=== PATIENT | female | born 1960 | race Hispanic/Latino ===

== ENCOUNTER 2017-08-23 07:17 | Outpatient (CLI) | payer BC | END 2017-08-23 07:18 | disposition home or self-care (01) | LOC: BICMAMMO 07:17 | PROVIDERS: ATTEND Obstetrics & Gynecology | DX: Z12.31 Encounter for screening mammogram for malignant neoplasm of breast (principal) | CPT/HCPCS: 77063; 77067; G0202 ==

== ENCOUNTER 2019-10-03 04:21 | Inpatient (IN) | payer BC ==
[2019-10-03] MEDS ORDERED: Morphine 4 MG/ML VIAL ONE ×2 (04:34→05:41)
[2019-10-03] MEDS ORDERED: Ondansetron PF 4 MG/2 ML Vial ONE (04:34)
[2019-10-03 04:59] LABS: Hemoglobin 14.2 g/dL (12.0-16.0); Mean Corpuscular HGB CONC 34.5 g/dL (32.0-36.0); Mean Corpuscular Hemoglobin 32.3 pg (27.0-31.0); Mean Corpuscular Volume 93.7 fL (78.0-98.0); Mean Platelet Volume 8.3 fL (7.4-10.4); Platelet Count 181 thou/uL (130-400); RBC Distribution Width 11.2 % (11.5-14.5); Red Blood Cell (RBC) Count 4.41 mill/uL (4.20-5.40); White Blood Cell (WBC) Count 16.5 thou/uL (4.8-10.8)
[2019-10-03 05:05] LABS: PTT 38.7 SEC (22.9-36.1); Prothrombin Time 13.4 SEC (12.0-14.7)
[2019-10-03 05:16] LABS: Band 24 % (5-11); Lymphocytes 4 % (21-51); MDiff Complete? YES; Monocytes 2 % (0-10); Neutrophil 70 % (42-75); Platelet Morphology Comment Appears Adequate; RBC Morphology Normal
[2019-10-03 05:23] LABS: ALT (SGPT) 18 U/L (8-55); AST (SGOT) 31 U/L (5-34); Albumin 4.1 g/dL (3.5-5.0); Alkaline Phosphatase 115 U/L (40-110); Anion Gap 17 mmol/L (10-20); BUN (Urea Nitrogen) 5 mg/dL (9.8-20.1); Bilirubin, Total 0.7 mg/dL (0.2-1.2); Calc. Creatinine Clearance 0 mL/min (70-130); Calcium 8.7 mg/dL (7.8-10.44); Carbon Dioxide 23 mmol/L (22-29); Chloride 96 mmol/L (98-107); Estimated GFR-MDRD 87; Globulin 4.3 g/dL (2.4-3.5); Glucose 156 mg/dL (70-105); Potassium 3.2 mmol/L (3.5-5.1); Protein, Total 8.4 g/dL (6.0-8.3); Sodium 133 mmol/L (136-145)
[2019-10-03] MEDS ORDERED: metroNIDAZOLE 500 MG/100 ML BAG ONE (05:25)
[2019-10-03] MEDS ORDERED: Piperacillin/Tazobactam 4.5 GM VIAL ONE (05:25)
[2019-10-03] MEDS ORDERED: Sodium Chloride 0.9% 100 ML ONE (05:25)
[2019-10-03 05:44] LABS: Bilirubin Negative (Negative); Blood, Urine Negative (Negative); Clarity Clear (Clear); Glucose, Urine (Dipstick) Normal (Negative); Leukocyte Negative Leu/uL (Negative); Nitrite Negative (Negative); Protein, Urine (Dipstick) Negative (Neg-Trace); Urobilinogen Normal mg/dL (Less than 2)
[2019-10-03] MEDS ORDERED: Fentanyl 100 MCG/2 ML VIAL ONE (06:40)
--- NOTE | 2019-10-03 07:55 | RAD ---
CHEST 1 VIEW: HISTORY: Pain. COMPARISON: 08/03/2007. FINDINGS: Normal cardiac silhouette. The lungs and pleural spaces are clear. No pneumothorax or osseous abnor malities. IMPRESSION: No acute cardiopulmonary process. POS: PPP
[2019-10-03] MEDS ORDERED: Sodium Chloride 0.9% 1,000 ML IV SCH (08:04)
[2019-10-03 08:16] LABS: Lactic Acid 2.4 mmol/L (0.5-2.2)
--- NOTE | 2019-10-03 08:16 | CT ---
ABDOMEN CT WITHOUT CONTRAST PELVIC CT WITHOUT CONTRAST: HISTORY: Right-side abdominal pain beginning at 5 p.m. yesterday. Abdominal distention. The patient had a co lonoscopy yesterday. Previous cholecystectomy. FINDINGS: ABDOMEN CT: Lung bases are clear. Heart size is normal. No significant pericardial effusion. The visualized ao rta has a normal caliber. No periaortic fat stranding. Gallbladder is surgically absent. There is hypoattenuation of the liver suggesting hepatic steatosis. No enhancing masses within the l iver. Spleen, pancreas, and adrenal glands have normal attenuation and enhancement. No gastrohepatic, retrocrural, or periportal lymphadenopathy. There is evidence of mild dilatation of bilateral intrarenal collecting systems, right greater than l eft. Bilateral extrarenal collecting systems are decompressed. Significance of the mild dilatation of the intrarenal collecting systems is uncertain but may, in part, be a normal variant. The finding s are similar on a stone CT performed 07/01/2003. Limited evaluation of the alimentary canal with the absence of oral contrast. Gastric mucosa, duoden um, and multiple normal-caliber small bowel loops are identified. There is inflammatory change at th e ileocecal junction as well as circumferential mucosal edema involving the cecal apex, cecum, and as cending colon. The transverse colon, descending colon, and sigmoid colon have a normal caliber. The re is diverticulosis in the left hemicolon. No evidence of diverticulitis. At the level of the cecu m and ascending colon, there is a small amount of fluid and pericolonic fat stranding. There does ap pear to be an abrupt caliber change at the junction of the ascending colon and proximal transverse co opal. Please refer to recent colonoscopy report for further detail. No evidence of extraluminal air. No evidence of abscess. PELVIC CT: Limited evaluation due to beam-attenuation artifact from bilateral hip prostheses. Urinary bladder a ppears to be unremarkable. No pelvic mass, lymphadenopathy, free air, or free fluid. There appear t o be hysterectomy changes. OSSEOUS STRUCTURES: Grade I anterolisthesis of L5 upon S1 with associated bilateral pars defects. IMPRESSION: 1. Abnormal mucosal edema involving the right hemicolon as described above. There are inflammatory changes and fluid in the adjacent mesentery. Findings may be due to infectious, inflammatory process versus a reactive process due to recent colonoscopy. Please refer to separate colonoscopy report fo r further detail. The possibility of a lesion in the right hemicolon cannot be excluded. GI consult ation if clinically warranted. 2. Stable mild prominence of bilateral intrarenal collecting systems. Given longstanding presence, a congenital variant is favored. There is no evidence of an obstructing calculus. Results of the study were discussed with Dr. Barth 10/03/2019 at 5:19 a.m. CODE JARRET POS: PPP
[2019-10-03] MEDS ORDERED: Sodium Chloride 0.9% 500 ML IV SCH (08:45)
[2019-10-03] MEDS ORDERED: diphenhydrAMINE 25 MG CAP PO PRN (08:55)
[2019-10-03] MEDS ORDERED: Naloxone HCl 0.4 mg/ml Vial IV PRN (08:55)
[2019-10-03] MEDS ORDERED: diphenhydrAMINE 50 MG/ML VIAL IM PRN (08:55)
[2019-10-03] MEDS ORDERED: diphenhydrAMINE 50 MG/ML VIAL IVP PRN (08:55)
[2019-10-03] MEDS ORDERED: Communication Order-Pharmacy FS SCH (09:00)
[2019-10-03] MEDS ORDERED: Famotidine 20 MG TAB PO SCH (09:00)
[2019-10-03 09:25] VITALS: BMI 28.7
--- NOTE | 2019-10-03 09:28 | PDOC.HHP ---
Hospitalist HPI - History of Present Illness Abdominal pain History of Present Illness: The patient is a 58 year old female with past medical history of hypertension and chronic diarrhea after cholecystectomy 6 years ago who presented to the hospital with sever abdominal pain the started yesterday 5 hrs after screening colonoscopy with polypectomies. The pain gradually worsened and became unbearable this morning. In the ER inital assesment revealed signs of sepsis and peritonitis. Hospitalist ROS - Review of Systems Constitutional: reports: chills Respiratory: denies: cough, dry, shortness of breath, hemoptysis, SOB with excertion, pleuritic pain, sputum, wheezing, other Gastrointestinal: reports: nausea, abdominal pain, diarrhea All other systems reviewed; all pertinent +/- noted in HPI/Subj - Medication Medications: Active Medications Diphenhydramine HCl (Benadryl) 25 mg IVP Q3H PRN PRN Reason: Itching Diphenhydramine HCl (Benadryl) 25 mg PO Q3H PRN PRN Reason: Itching Diphenhydramine HCl (Benadryl) 25 mg IM Q3H PRN PRN Reason: Itching Famotidine (Pepcid) 20 mg PO BID [facility] Heparin Sodium (Porcine) (Heparin) 5,000 units SC TID [facility] Hydromorphone HCl (Dilaudid Cadd) 0 mg IVPB INF PRN PRN Reason: Pain Sodium Chloride (Normal Saline 0.9%) 1,000 mls @ 150 mls/hr IV .Q6H40M [facility] Stop: 10/03/19 18:11 Piperacillin Sod/Tazobactam (Sod 3.375 gm/ Sodium Chloride) 100 mls @ 200 mls/ hr IVPB Q6HR [facility] Miscellaneous Information (Communication Order-Pharmacy) 1 each FS ONE [facility] Stop: 10/04/19 23:59 Naloxone HCl (Narcan) 0.2 mg IV Q5MIN PRN PRN Reason: Opiate Reversal Ondansetron HCl (Zofran) 4 mg IVP Q6H PRN PRN Reason: Nausea/Vomiting Stop: 10/03/19 18:11 Sodium Chloride (Flush - Normal Saline) 10 ml IVF PRN PRN PRN Reason: Saline Flush Stop: 10/03/19 18:11 Hospitalist History - Past Medical History Cardiac: reports: no pertinent history Pulmonary: reports: no pertinent history [employer]ELOPER: reports: no pertinent history - Past Surgical History Past Surgical History: reports: Cholecystectomy Hospitalist Results - Labs Result Diagrams: 10/03/19 04:35 10/03/19 04:35 Lab results: WBC 16.5 thou/uL (4.8-10.8) H 10/03/19 04:35 Hgb 14.2 g/dL (12.0-16.0) 10/03/19 04:35 Hct 41.3 % (36.0-47.0) 10/03/19 04:35 MCV 93.7 fL (78.0-98.0) 10/03/19 04:35 Plt Count 181 thou/uL (130-400) 10/03/19 04:35 Band Neuts % (Manual) 24 % (5-11) H 10/03/19 04:35 Sodium 133 mmol/L (136-145) L 10/03/19 04:35 Potassium 3.2 mmol/L (3.5-5.1) L 10/03/19 04:35 Chloride 96 mmol/L (98-107) L 10/03/19 04:35 Carbon Dioxide 23 mmol/L (22-29) 10/03/19 04:35 BUN 5 mg/dL (9.8-20.1) L 10/03/19 04:35 Creatinine 0.70 mg/dL (0.6-1.1) 10/03/19 04:35 Glucose 156 mg/dL (70-105) H 10/03/19 04:35 Lactic Acid 2.4 mmol/L (0.5-2.2) H 10/03/19 07:48 Calcium 8.7 mg/dL (7.8-10.44) 10/03/19 04:35 Total Bilirubin 0.7 mg/dL (0.2-1.2) 10/03/19 04:35 AST 31 U/L (5-34) 10/03/19 04:35 ALT 18 U/L (8-55) 10/03/19 04:35 Alkaline Phosphatase 115 U/L (40-110) H 10/03/19 04:35 Serum Total Protein 8.4 g/dL (6.0-8.3) H 10/03/19 04:35 Albumin 4.1 g/dL (3.5-5.0) 10/03/19 04:35 Urine Ketones Negative mg/dL (Negative) 10/03/19 05:20 Urine Blood Negative (Negative) 10/03/19 05:20 Urine Nitrite Negative (Negative) 10/03/19 05:20 Ur Leukocyte Esterase Negative Giuseppe/uL (Negative) 10/03/19 05:20 Hospitalist H&P A/P - Problem (1) Sepsis Code(s): A41.9 - SEPSIS, UNSPECIFIED ORGANISM Status: Acute Qualifiers: Sepsis acute organ dysfunction status: without acute organ dysfunction Assessment and Plan: Sepsis due to peritonitis likely due to microperforation and translocation of bacteria following colonoscopy with polypectomy. Likely organisms are gram negative bacilli. Start IV Zosyn, IVF, Hydromorphone ROLLER and zofran prn. Check LA, CBC,BMP,Blood culture. (2) Peritonitis Code(s): K65.9 - PERITONITIS, UNSPECIFIED Status: Acute Assessment and Plan: Dr. Cardona consulted. Non acute indication for surgery at this time. (3) Hypertension Code(s): I10 - ESSENTIAL (PRIMARY) HYPERTENSION Status: Acute Qualifiers: Hypertension type: essential hypertension Qualified Code(s): I10 - Essential (primary) hypertension Assessment and Plan: Likely uncontrolled due to pain. Continue to monitor. (4) Status post colonoscopy Code(s): Z98.890 - OTHER SPECIFIED POSTPROCEDURAL STATES Status: Acute Assessment and Plan: As above.
[2019-10-03] MEDS ORDERED: Morphine 4 MG/ML VIAL SLOW IVP PRN (09:47)
[2019-10-03] MEDS ORDERED: Iopamidol-370 76% 500 ML 1 ML ONE (09:58)
[2019-10-03] MEDS: HYDROmorphone 10 mg/100 ml CADD IVPB PRN (10:03)
[2019-10-03] MEDS: Piperacillin/Tazobactam 3.375 GM in Sodium Chloride 0.9% 100 ML IVPB SCH ×3 (11:22→23:19)
[2019-10-03] MEDS: Heparin 5,000 UNITS/ML VIAL SC SCH ×3 (11:22→19:36)
[2019-10-03] MEDS ORDERED: Ondansetron ODT 4 MG TAB SL PRN (11:30)
[2019-10-03] MEDS ORDERED: Ondansetron PF 4 MG/2 ML Vial IVP PRN (11:30)
[2019-10-03 12:42] LABS: Lactic Acid 1.8 mmol/L (0.5-2.2)
[2019-10-03] MEDS ORDERED: Morphine 4 MG/ML VIAL SLOW IVP SCH (14:30)
[2019-10-03] MEDS: Sodium Chloride 0.9% 1,000 ML IV SCH ×2 (14:57→15:00)
[2019-10-03] MEDS ORDERED: Ketorolac Tromethamine 30 MG/ML VIAL ONE (15:28)
[2019-10-03] MEDS ORDERED: Ketorolac Tromethamine 30 MG/ML VIAL IVP SCH (15:30)
--- NOTE | 2019-10-03 15:41 | RAD ---
KUB: 10/03/19 HISTORY: Abdominal pain. Evaluation for free air. There is air within both small and large bowel. This was performed as only a semi-erect film by the avtar lucas. I do not appreciate any free air on this exam. IMPRESSION: Air within both small and large bowel. Small bowel loops are not significantly dilated at this time. I do not appreciate any free air on this semi-erect film. POS: KAYLEE
[2019-10-03] MEDS: ALPRAZolam 0.25 MG TAB PO PRN (17:01)
[2019-10-03] MEDS ORDERED: FLU VACC QS2019-20(6MOS UP)/PF 60 MCG/0.5 ML SYRINGE IM ONE (18:00)
[2019-10-03] MEDS: Ketorolac Tromethamine 30 MG/ML VIAL IVP SCH ×2 (18:09→23:18)
[2019-10-03] MEDS: Diazepam 5 MG TAB PO SCH (20:26)
--- NOTE | 2019-10-03 22:03 | CON ---
DATE OF CONSULTATION: 10/03/2019 REQUESTING PHYSICIAN: Dr. Zack Moreira. HISTORY OF PRESENT ILLNESS: This is a 58-year-old woman, who presented to emergency department yesterday complaining of insidious onset severe right lower quadrant abdominal pain, which started approximately 5 hours after a screening colonoscopy yesterday for chronic diarrhea. The colonoscopy included polypectomy x2. The patient reported pain at 8/10 at onset and intensified to 10/10 at the time of presentation to the Emergency Department. Pain is associated with one bout of nausea, but no emesis. Last bowel movement and flatus was yesterday. At the time of my evaluation, the patient is awake and alert. She denies any relief with intravenous analgesics, which was provided in the emergency department. She denies any fevers or chills. She denies any dyspnea or syncope. PAST MEDICAL HISTORY: Essentially unremarkable except for chronic diarrhea. Other pertinent past medical history includes gastroesophageal reflux disease, anxiety and chronic depression. PAST SURGICAL HISTORY: Pertinent for a laparoscopic cholecystectomy 6 years ago, which preceded the chronic diarrhea. Other surgical history includes hysterectomy and kidney stone extraction. SOCIAL HISTORY: She is , lives at home with her . She denies any cigarette smoking, ethanol, or illicit drug abuse. PRE-HOSPITAL MEDICATIONS: Includes; 1. Alprazolam 0.5 mg p.o. p.r.n. 2. Amlodipine 10 mg p.o. daily. 3. Estradiol 2 mg p.o. daily. 4. Omeprazole 20 mg p.o. daily. 5. Cymbalta 90 mg p.o. daily. ALLERGIES: THE PATIENT DENIES ANY KNOWN DRUG ALLERGIES. REVIEW OF SYSTEMS: Ten-point review of systems essentially unremarkable except as stated in past medical history and chief complaint. PHYSICAL EXAMINATION: GENERAL: This reveals a 58-year-old normally developed woman, who is otherwise coherent and interactive and appears stated age. The patient is alert and oriented x3. She appears to be in moderate acute distress secondary to severe abdominal pain. VITAL SIGNS: This morning includes blood pressure 139/73, pulse is 116, temperature is 98.3 degrees Fahrenheit, oxygen saturation is 92% on room air. HEENT: Pupils equal, round, reactive to light and accommodation. She has no jugular venous distention noted. HEART: Reveals regular rate with sinus tachycardia. No murmurs or gallops auscultated. LUNGS: Clear to auscultation bilaterally. Her breathing is regular and nonlabored. ABDOMEN: Soft, moderately distended and severely tender in the right lower quadrant. Palpation of the right upper, left upper and left lower quadrants, nontender to palpation. She clearly has no rebound tenderness. Bowel sounds are hypoactive in all 4 quadrants. Liver and spleen are nonpalpable below costal margin. NEUROLOGIC: Reveals no focal deficits present. LABORATORY FINDINGS: Today include a CBC with 16,500 white blood cells, hemoglobin and hematocrit 14.2 and 41.3 respectively. Platelet count is 181,000. Differential counts as follows; 70% segmented neutrophils, 24 bands, 4 lymphocytes, and 2 monocytes. Metabolic profile; sodium 133, potassium 3.2, chloride is 96, BUN is 5, creatinine 0.70, glucose 156. Lactic acid which was 3.3 this morning is now down to 1.8 six to eight hours later. Initial total bilirubin 0.7, AST and ALT 31 and 18 respectively. I have personally reviewed the CT scan of the abdomen and pelvis, which was obtained this morning with IV and no oral contrast and this shows right colonic mucosal edema with mesenteric inflammatory fat stranding. There is no pneumoperitoneum or free fluid noted. Six hours from my previous evaluation of this patient due to persistent severe abdominal pain, two-view abdominal x-ray were obtained. This reveals nonspecific gas pattern within the small and large bowel. Again, no pneumoperitoneum is demonstrated. IMPRESSION: 1. Acute severe abdominal pain with localized right-sided peritonitis, status post screening colonoscopy. 2. I suspect a contained microperforation with no physiologic evidence of intraabdominal sepsis. RECOMMENDATIONS: 1. Bowel rest and IV hydration. 2. Broad-spectrum antibiotic therapy. 3. Adequate pain management. 4. We will increase activity to facilitate return of bowel function. The above findings and plan have been discussed with the patient and her family at bedside. I advised the patient that we will continue with serial physical examination and consider surgical intervention if any onset of physiologic derangements including fever, generalized peritonitis, abnormal kidney function or any radiographic evidence of pneumoperitoneum. The patient and her family have indicated understanding of information given. I have answered their questions. Thank you again, Dr. Moreira for allowing me the opportunity to participate in the care of this patient. Job ID: [id number]
[2019-10-04] MEDS: Ketorolac Tromethamine 30 MG/ML VIAL IVP SCH (05:15)
[2019-10-04] MEDS: Piperacillin/Tazobactam 3.375 GM in Sodium Chloride 0.9% 100 ML IVPB SCH ×3 (05:16→17:22)
[2019-10-04 06:28] LABS: #Eosinphils 0.1 thou/uL (0.0-0.7); #Lymphocytes 1.3 thou/uL (1.20-3.40); #Monocytes 0.6 thou/uL (0.11-0.59); #Neutrophils 11.4 thou/uL (1.40-6.50); %Eosinophils 0.9 % (0.0-10.0); %Lymphocytes 9.9 % (21.0-51.0); %Monocytes 4.2 % (0.0-10.0); Anion Gap 12 mmol/L (10-20); BUN (Urea Nitrogen) Less than 4 mg/dL (9.8-20.1); Calc. Creatinine Clearance 108 mL/min (70-130); Calcium 7.5 mg/dL (7.8-10.44); Carbon Dioxide 26 mmol/L (22-29); Chloride 105 mmol/L (98-107); Estimated GFR-MDRD Greater than 90; Glucose 90 mg/dL (70-105); Hemoglobin 11.4 g/dL (12.0-16.0); Mean Corpuscular HGB CONC 33.7 g/dL (32.0-36.0); Mean Corpuscular Hemoglobin 32.6 pg (27.0-31.0); Mean Corpuscular Volume 96.7 fL (78.0-98.0); Mean Platelet Volume 8.1 fL (7.4-10.4); Platelet Count 118 thou/uL (130-400); Platelet Morphology Comment Appears Decreased; RBC Distribution Width 11.3 % (11.5-14.5); RBC Morphology Normal; Red Blood Cell (RBC) Count 3.49 mill/uL (4.20-5.40); Sodium 141 mmol/L (136-145); White Blood Cell (WBC) Count 13.4 thou/uL (4.8-10.8)
[2019-10-04 06:30] LABS: Potassium 2.4 mmol/L (3.5-5.1)
[2019-10-04] MEDS ORDERED: Potassium Chloride 20 MEQ in Premix Bag 1 BAG IVPB SCH (08:00)
[2019-10-04] MEDS: DULoxetine 30 MG CAP PO SCH (08:09)
[2019-10-04] MEDS: Diazepam 5 MG TAB PO SCH ×2 (08:09→20:33)
[2019-10-04] MEDS: Heparin 5,000 UNITS/ML VIAL SC SCH ×3 (08:10→20:33)
[2019-10-04] MEDS ORDERED: Potassium Chloride 20 MEQ TAB PO SCH (08:15)
[2019-10-04] MEDS ORDERED: traMADol HCl 50 MG TAB PO PRN ×3 (09:01→12:01)
[2019-10-04] MEDS ORDERED: Ibuprofen 200 MG TAB PO PRN (09:02)
--- NOTE | 2019-10-04 09:28 | PDOC.HOSPP ---
- Subjective Encounter Date: 10/04/19 Encounter Time: 09:26 Subjective: See details below - Objective Vital Signs & Weight: Vital Signs (12 hours) Temp Pulse Resp BP Pulse Ox 10/04/19 07:58 97.7 F 88 12 117/74 91 L 10/04/19 07:00 104 H 20 92 L 10/04/19 04:41 97.8 F 91 18 119/78 96 10/04/19 00:18 93 93 L 10/04/19 00:15 108 H Weight Weight 132 lb 9.6 oz I&O: 10/03/19 10/04/19 10/05/19 06:59 06:59 06:59 Intake Total 3050 Output Total 5250 Balance -2200 Result Diagrams: 10/04/19 05:56 10/04/19 05:56 Hospitalist ROS - Medication Medications: Active Medications Generic Name Dose Route Start Last Admin Trade Name Freq PRN Reason Stop Dose Admin Albuterol/Ipratropium 3 ml 10/03/19 18:30 10/04/19 07:00 Duoneb NEB 3 ml TID-RT KENIA Administration Alprazolam 0.25 mg 10/03/19 14:20 10/03/19 17:01 Xanax PO 0.25 mg BIDPRN PRN Administration Anxiety Diazepam 5 mg 10/03/19 21:00 10/04/19 08:09 Valium PO 5 mg BID KENIA Administration Diphenhydramine HCl 25 mg 10/03/19 08:55 10/03/19 19:33 Benadryl IVP 25 mg Q3H PRN Administration Itching Duloxetine HCl 90 mg 10/04/19 09:00 10/04/19 08:09 Cymbalta PO 90 mg DAILY KENIA Administration Heparin Sodium (Porcine) 5,000 units 10/03/19 09:00 10/04/19 08:10 Heparin SC 5,000 units TID KENIA Administration Hydromorphone HCl 0 mg 10/03/19 08:55 10/03/19 10:03 Dilaudid Cadd IVPB 10 mg INF PRN Administration Pain Piperacillin Sod/Tazobactam 100 mls @ 200 mls/hr 10/03/19 12:00 10/04/19 05: 16 Sod 3.375 gm/ Sodium Chloride IVPB 100 mls Q6HR KENIA Administration Pantoprazole Sodium 40 mg 10/04/19 09:00 10/04/19 08:10 Protonix PO 40 mg DAILY KENIA Administration - Exam General Appearance: awake alert Eye: PERRL, anicteric sclera Neck: supple, symmetric, no JVD, no thyromegaly, no lymphadenopathy, no carotid bruit Heart: RRR, no murmur, no gallops, no rubs, normal peripheral pulses Respiratory: CTAB, no wheezes, no rales, no ronchi, normal chest expansion, no tachypnea, normal percussion Gastrointestinal: soft, no palpable masses, no rigidity, tender to palpation, diminished bowl sounds Neurological: cranial nerve grossly intact, normal sensation to touch, no weakness, no focal deficits, no new deficit Hosp A/P (1) Sepsis Code(s): A41.9 - SEPSIS, UNSPECIFIED ORGANISM Status: Acute Qualifiers: Sepsis acute organ dysfunction status: without acute organ dysfunction (2) Peritonitis Code(s): K65.9 - PERITONITIS, UNSPECIFIED Status: Acute (3) Hypertension Code(s): I10 - ESSENTIAL (PRIMARY) HYPERTENSION Status: Acute Qualifiers: Hypertension type: essential hypertension Qualified Code(s): I10 - Essential (primary) hypertension (4) Status post colonoscopy Code(s): Z98.890 - OTHER SPECIFIED POSTPROCEDURAL STATES Status: Acute - Plan 09/02: Sepsis due to peritonitis likely due to microperforation and translocation of bacteria following colonoscopy with polypectomy. Likely organisms are gram negative bacilli. Start IV Zosyn, IVF, Hydromorphone [employer] and zofran prn. Check LA, CBC,BMP,Blood culture. 09/03: The patient was seen and examined this morning. She reports that her pain is now at a level of 7 compared to 10 yesterday. No bowel movements were is reported, however she passed gas yesterday and today. She is denying any nausea or vomiting. Over a liter of urine is present in the [place] catheter bag. She was able to ambulate with difficulty due to pain. On examination, her bowel sounds are less than yesterday. Hypokalemia was noted the laboratory studies. Blood culture positive for E. coli. Leukocytosis improving. Continue IV Zosyn and follow final cultures and identification data. Encourage ambulation. No indication for surgery at this time per surgical team. Ileus is present likely exacerbated by opioids and hypokalemia. We will replace her potassium orally as the patient was unable to tolerate IV replacement. Oral tramadol has been started to help wean off Dilaudid [employer].
[2019-10-04] MEDS: Acetaminophen 500 MG TAB PO SCH ×3 (10:25→20:33)
[2019-10-04] MEDS: Potassium Chloride 20 MEQ TAB PO SCH ×3 (10:26→13:22)
--- NOTE | 2019-10-04 12:34 | PRG ---
DATE OF SERVICE: 10/04/2019 SUBJECTIVE: Ms. Mills is a 58-year-old woman who is postoperative day #2, status post screening colonoscopy with polypectomy. The patient was admitted yesterday with abdominal pain, which is intensified to 10/10. She was suspected with acute peritonitis secondary to likely microperforation with bacterial translocation. This morning, she is awake and alert. She has been on a broad-spectrum antibiotic therapy, but reporting passing some flatus, but no bowel movements. She reports decrease in abdominal pain. She denies any fevers or chills. Blood cultures are now positive for E coli bacteremia. Sensitivity studies are pending. OBJECTIVE: VITAL SIGNS: This morning include blood pressure 117/74, pulse is 88, respiratory rate is 12, temperature is 97.7 degrees Fahrenheit, oxygen saturation is 91% on 2 L by nasal cannula oxygen. Maximum temperature in the last 24 hours is 98.3 degrees Fahrenheit. ABDOMEN: Soft with moderate tenderness to palpation and no significant rebound tenderness present. Bowel sounds are present in all 4 quadrants. Abdomen is not as distended as it was yesterday. NEUROLOGIC: No focal deficits present. LABORATORY FINDINGS: Today include a CBC with 13,400 white blood cells in contrast to 16,500 yesterday. hemoglobin and hematocrit are 11.4 and 33.7 respectively, and platelet count is 118,000. Metabolic profile: Sodium 141, potassium is 2.4, chloride is 105, bicarb is 26, BUN is 4, creatinine is 0.55, and glucose is 90. IMPRESSIONS: 1. Postoperative day #2, status post screening colonoscopy with polypectomy x2. 2. Resolving acute peritonitis. 3. Escherichia coli bacteremia secondary to #2. 4. Acute hypokalemia. PLAN: 1. Correct abnormal electrolytes. 2. Continue broad-spectrum antibiotic therapy. 3. There is no further surgical indication for this patient at this time. We will continue with serial physical examination. Anticipate successful nonoperative management of this presumed microperforation. 4. Above findings and plan has been discussed with the patient and her family at bedside. 5. We will resume a clear liquid diet and increase activity. Job ID: [id number]
[2019-10-04] MEDS: traMADol HCl 50 MG TAB PO SCH ×2 (13:19→18:01)
[2019-10-04 13:23] LABS: Hemoglobin 11.4 g/dL (12.0-16.0); Mean Corpuscular HGB CONC 34.2 g/dL (32.0-36.0); Mean Corpuscular Volume 96.2 fL (78.0-98.0); Mean Platelet Volume 8.2 fL (7.4-10.4); Platelet Count 117 thou/uL (130-400); RBC Distribution Width 11.2 % (11.5-14.5); Red Blood Cell (RBC) Count 3.46 mill/uL (4.20-5.40); White Blood Cell (WBC) Count 12.5 thou/uL (4.8-10.8)
[2019-10-04 13:28] LABS: Magnesium 1.4 mg/dL (1.6-2.6)
[2019-10-04 13:31] LABS: Phosphorus 1.7 mg/dL (2.3-4.7)
[2019-10-04 13:44] LABS: Band 26 % (5-11); Eosinophils 3 % (0-10); Hypochromia SLIGHT = 6-15 cells (100X) (0-5/hpf); Lymphocytes 5 % (21-51); MDiff Complete? YES; Monocytes 7 % (0-10); Neutrophil 59 % (42-75); Platelet Morphology Comment Appears Decreased; Polychromasia SLIGHT = 2-3 cells (100X) (0-2/hpf)
[2019-10-04 15:30] LABS: Anion Gap 14 mmol/L (10-20); BUN (Urea Nitrogen) 4 mg/dL (9.8-20.1); Calc. Creatinine Clearance 89 mL/min (70-130); Calcium 7.7 mg/dL (7.8-10.44); Carbon Dioxide 24 mmol/L (22-29); Chloride 101 mmol/L (98-107); Estimated GFR-MDRD Greater than 90; Glucose 162 mg/dL (70-105); Potassium 3.1 mmol/L (3.5-5.1); Sodium 136 mmol/L (136-145)
[2019-10-04] MEDS ORDERED: Potassium Phosphate 30 MMOL, Magnesium Sulfate 3 GM in Sodium Chloride 0.9% 250 ML 250 ML IVPB SCH (16:45)
[2019-10-04] MEDS ORDERED: Magnesium Sulfate 3 GM in Sodium Chloride 0.9% 100 ML IVPB SCH (16:45)
[2019-10-05] MEDS ORDERED: Piperacillin/Tazobactam 3.375 GM VIAL ONE (00:28)
[2019-10-05] MEDS: traMADol HCl 50 MG TAB PO SCH ×4 (00:56→17:18)
[2019-10-05] MEDS: Piperacillin/Tazobactam 3.375 GM in Sodium Chloride 0.9% 100 ML IVPB SCH ×4 (01:00→17:19)
[2019-10-05] MEDS: Acetaminophen 500 MG TAB PO SCH ×4 (03:06→20:28)
[2019-10-05] MEDS: HYDROmorphone 10 mg/100 ml CADD IVPB PRN (07:26)
[2019-10-05 08:56] LABS: Anion Gap 15 mmol/L (10-20); BUN (Urea Nitrogen) Less than 4 mg/dL (9.8-20.1); Calc. Creatinine Clearance 113 mL/min (70-130); Calcium 7.5 mg/dL (7.8-10.44); Carbon Dioxide 21 mmol/L (22-29); Chloride 102 mmol/L (98-107); Estimated GFR-MDRD Greater than 90; Glucose 114 mg/dL (70-105); Magnesium 2.1 mg/dL (1.6-2.6); Potassium 3.2 mmol/L (3.5-5.1); Sodium 135 mmol/L (136-145)
[2019-10-05] MEDS ORDERED: Potassium Chloride 20 MEQ TAB PO SCH (09:15)
[2019-10-05 09:18] LABS: Phosphorus 1.9 mg/dL (2.3-4.7)
[2019-10-05 09:34] LABS: Band 6 % (5-11); Eosinophils 1 % (0-10); Hemoglobin 11.9 g/dL (12.0-16.0); Lymphocytes 11 % (21-51); MDiff Complete? YES; Mean Corpuscular HGB CONC 31.7 g/dL (32.0-36.0); Mean Corpuscular Hemoglobin 30.7 pg (27.0-31.0); Mean Corpuscular Volume 96.7 fL (78.0-98.0); Mean Platelet Volume 8.3 fL (7.4-10.4); Monocytes 4 % (0-10); Neutrophil 78 % (42-75); Platelet Count 147 thou/uL (130-400); RBC Distribution Width 11.3 % (11.5-14.5); RBC Morphology Normal; Red Blood Cell (RBC) Count 3.87 mill/uL (4.20-5.40); White Blood Cell (WBC) Count 12.5 thou/uL (4.8-10.8)
[2019-10-05] MEDS: DULoxetine 30 MG CAP PO SCH (09:48)
[2019-10-05] MEDS: Diazepam 5 MG TAB PO SCH ×2 (09:52→20:32)
[2019-10-05] MEDS: Heparin 5,000 UNITS/ML VIAL SC SCH ×3 (09:53→20:28)
[2019-10-05] MEDS: ALPRAZolam 0.25 MG TAB PO PRN (12:34)
--- NOTE | 2019-10-05 13:28 | CON ---
DATE OF CONSULTATION: 10/05/2019 REQUESTING PHYSICIAN: Preston Carpio MD REASON FOR CONSULTATION: Abdominal pain and bacteremia following colonoscopy. HISTORY OF PRESENT ILLNESS: Lillian Mills is a 58-year-old woman, whom I met just 3 days ago for outpatient routine screening colonoscopy. She had complained of some chronic diarrhea symptoms for several years ever since a prior cholecystectomy, but otherwise had no abdominal complaints at the time of the exam. The colonoscopy went well. The mucosa appeared normal throughout the colon. She had 4 small polyps, all 4 mm or less in size, 3 of them were in the ascending colon and 1 was in the transverse colon. I completely removed all 4 polyps with cold snare polypectomy. No cautery was used. She had some sigmoid diverticulosis, but no evidence of diverticulitis. The examination was otherwise without abnormality. I did not visualize the terminal ileum, but the ileocecal valve appeared normal. Following the procedure, the patient was doing well. I sent her a prescription for colestipol to try for the chronic diarrhea. The patient reports that 4 to 5 hours after the procedure she started having progressively worsening abdominal pain in the right side of the abdomen. Overnight that night, it became severe and she presented to the emergency department. She was found to have leukocytosis with WBC initially of 16.5 as well as lactic acid elevation to 3.3. She was tachycardic, though afebrile. A CT scan of the abdomen and pelvis was performed without contrast. She had no free intraperitoneal air, but there is mucosal edema involving most of the right hemicolon including the cecal apex, cecum, ascending colon, and ileocecal junction. The remainder of the colon was normal in caliber. She was evaluated by Dr. Cardona. His impression was that the patient probably experienced bacterial translocation secondary to a microperforation with subsequent peritonitis. One blood culture did come back growing E coli. The patient has been treated with broad-spectrum antibiotics over the weekend. My service was not notified until this morning. The patient has been afebrile and hemodynamically stable, but her abdominal pain persists. She has been on a Dilaudid CASH MANAGEMENT CLERK. There has been no vomiting. She has passed a bit of flatus. No bowel movements. She is quite frustrated. REVIEW OF SYSTEMS: Full review of systems including constitutional, head, eyes, ears, nose, throat, GI, , cardiovascular, respiratory, musculoskeletal, neurologic systems is negative except as noted in the HPI. PAST MEDICAL HISTORY: 1. Cholecystectomy 6 years ago. 2. Chronic diarrhea, since cholecystectomy. 3. Anxiety. 4. Depression. 5. GERD. 6. Colon polyps, status post cold snare polypectomy x4 on 10/02/2019. 7. Hysterectomy. 8. Kidney stone extraction. SOCIAL HISTORY: The patient is , lives at home with her . No smoking, alcohol, or drug use. FAMILY HISTORY: Noncontributory. ALLERGIES: NO KNOWN DRUG ALLERGIES. OUTPATIENT MEDICATIONS: 1. Alprazolam 0.5 mg p.o. p.r.n. 2. Amlodipine 10 mg daily. 3. Estradiol 2 mg daily. 4. Omeprazole 20 mg daily. 5. Cymbalta 90 mg daily. INPATIENT MEDICATIONS: 1. Tylenol p.r.n. 2. DuoNebs t.i.d. 3. Xanax 0.5 mg b.i.d. p.r.n. 4. Valium 5 mg p.o. b.i.d. 5. Cymbalta 90 mg daily. 6. Pantoprazole 40 mg daily. 7. Zosyn 3.375 mg every 6 hours. 8. Tramadol 50 mg q.6 h. 9. Dilaudid CASH MANAGEMENT CLERK. PHYSICAL EXAMINATION: VITAL SIGNS: Temperature 97.5, pulse 93, blood pressure 127/87, and 99% oxygen saturation on room air. GENERAL: A 58-year-old woman, lying in bed, in [id number] distress from abdominal pain, currently receiving breathing treatment, but appears to be breathing comfortably. SKIN: No jaundice and no rashes were palpable. EYES: No scleral icterus. Extraocular movements intact. ENT: Mucous membranes moist. No oral lesions. LYMPHATICS: No submandibular or supraclavicular lymphadenopathy. THYROID: Nontender to palpation. HEART: Regular rate and rhythm. LUNGS: Clear to auscultation bilaterally. ABDOMEN: Nondistended. Bowel sounds are hypoactive. The abdomen is soft. Generalized tenderness to palpation. No guarding or rebound tenderness. EXTREMITIES: No peripheral edema. VESSELS: Radial pulses 2+ bilaterally. NEUROLOGIC: Cranial nerves 2 through 12 intact bilaterally. No focal deficits. LABORATORY STUDIES: WBC initially 16.5 and now down to 12.5, hemoglobin 11.9, and platelets 147. INR 1.0. Sodium 135, potassium 3.2, BUN less than 4, creatinine 0.53, and calcium 7.5. Phosphorus 1.9. Magnesium 2.1. Urinalysis is negative. Blood cultures from admission, one blood culture shows no growth at 48 hours, the other blood culture is growing out E coli. This is resistant to ciprofloxacin and levofloxacin, otherwise pansensitive including sensitive to Zosyn. IMAGING STUDIES: CT of the abdomen and pelvis as detailed in the HPI. ASSESSMENT AND PLAN: 1. Acute peritonitis, following colonoscopy with multiple cold snare polypectomy. 2. Escherichia coli bacteremia, now on IV Zosyn. 3. Right-sided abdominal pain, persistent, secondary to peritonitis. I had a long conversation with the patient this afternoon. She is understandably quite frustrated at what does appear to be a procedural complication. There is no evidence of macroperforation, but I agree with Dr. Cardona's assessment that the patient likely had bacterial translocation as a result of colonoscopy. This is quite unusual, particularly as her polyps were all small, and I did not have to use hot snare cautery. Another possibility would be colonic ischemia, I suppose , but that would be unusual to have such a temporal relationship to the colonoscopy. Dr. Carpio is now following from a surgical standpoint, and I agree with nonoperative management. She is on appropriate antibiotics, receiving appropriate pain control. I expect that symptoms are going to resolve completely, but obviously follow closely. If the patient were to spike fevers or have worsening abdominal pain, I have a low threshold for repeat imaging, and if so, I would get CT angiography to evaluate the mestenteric vasculature. I greatly appreciate the assistance of the Surgical Service. GI will follow along. Please call anytime with questions or concerns. Job ID: [id number] MTDD
--- NOTE | 2019-10-05 14:11 | PDOC.GSPN ---
Surgery Progress Note: Subj - Subjective Patient reports: had a bowel movement, feels better, pain is less Narrative: Mrs. Mills is a 58 year old female presenting with abdominal pain post- colonoscopy and polypectomy. About 5 hours post-colon she had right-sided "spasms" that progressed to excruciating pain 12 hours later. She did not have this before the procedure. Her GI doctor is Dr. Sedrick Britton. Surgery Progress Note: Obj - Vital signs Vital signs: Vital Signs - Most Recent Temp Pulse Resp BP Pulse Ox 97.8 F 99 18 121/83 95 10/05/19 12:53 10/05/19 12:53 10/05/19 12:53 10/05/19 12:53 10/05/19 12:53 - Physical Exam General: no distress Cardiovascular: regular rate and rhythm Respiratory: clear to auscultation Abdomen: soft, positive bowel sounds, tender (Right-sided) Surgery Progress Note: Results - Labs Result Diagrams: 10/08/19 05:06 10/08/19 05:06 Lab results: Laboratory Results - last 24 hr 10/05/19 10/05/19 08:24 08:24 WBC 12.5 H RBC 3.87 L Hgb 11.9 L Hct 37.4 MCV 96.7 MCH 30.7 MCHC 31.7 L RDW 11.3 L Plt Count 147 MPV 8.3 Neutrophils % (Manual) 78 H Band Neuts % (Manual) 6 Lymphocytes % (Manual) 11 L Monocytes % (Manual) 4 Eosinophils % (Manual) 1 RBC Morph Comment Normal Sodium 135 L Potassium 3.2 L Chloride 102 Carbon Dioxide 21 L Anion Gap 15 BUN Less than 4 L Creatinine 0.53 L Estimated GFR (MDRD) Greater than 90 Glucose 114 H Calcium 7.5 L Phosphorus 1.9 L Magnesium 2.1 Surgery Progress Note: A/P - Problem (1) Abdominal pain Code(s): R10.9 - UNSPECIFIED ABDOMINAL PAIN Status: Acute - Plan Plan: Continue observation and clear liquid diet. Will be seen by Dr. Britton. Addendum - Physician - Physician Attestation Date/Time: 10/11/19 0901 I personally performed or re-performed the physical examination and medical decision making. I have verified all student documentation or findings, including history, physical exam and/or medical decision making. Unsure of etiology of the colitis. She has pain but will follow closely for now. To OR if she develops peritonitis or worsening clinically.
--- NOTE | 2019-10-05 15:15 | PDOC.GSPN ---
Surgery Progress Note: Obj - Vital signs Vital signs: Vital Signs - Most Recent Temp Pulse Resp BP Pulse Ox 97.8 F 99 18 121/83 95 10/05/19 12:53 10/05/19 12:53 10/05/19 12:53 10/05/19 12:53 10/05/19 12:53 Surgery Progress Note: Results - Labs Result Diagrams: 10/05/19 08:24 10/05/19 08:24 Lab results: Laboratory Results - last 24 hr 10/05/19 10/05/19 08:24 08:24 WBC 12.5 H RBC 3.87 L Hgb 11.9 L Hct 37.4 MCV 96.7 MCH 30.7 MCHC 31.7 L RDW 11.3 L Plt Count 147 MPV 8.3 Neutrophils % (Manual) 78 H Band Neuts % (Manual) 6 Lymphocytes % (Manual) 11 L Monocytes % (Manual) 4 Eosinophils % (Manual) 1 RBC Morph Comment Normal Sodium 135 L Potassium 3.2 L Chloride 102 Carbon Dioxide 21 L Anion Gap 15 BUN Less than 4 L Creatinine 0.53 L Estimated GFR (MDRD) Greater than 90 Glucose 114 H Calcium 7.5 L Phosphorus 1.9 L Magnesium 2.1 Addendum - Physician - Physician Attestation Date/Time: 10/05/19 9855 I personally performed or re-performed the physical examination and medical decision making. I have verified all student documentation or findings, including history, physical exam and/or medical decision making. Patient would prefer to have Dr. Cardona resume as her surgeon tomorrow.
--- NOTE | 2019-10-05 15:39 | PRG ---
DATE OF SERVICE: 10/05/2019 SUBJECTIVE: Ms. Lundberg is angry on my visit with her today. She states that her pain in the right abdomen is 7/10 and sharp. She notes diarrhea as well. The patient is angry with me due to the fact that she states that she has had severe diarrhea ever since I removed her gallbladder previously. Looking back in my records reveals her cholecystectomy to have been performed in March of 2014. She had seen me back postop and had uncontrolled diarrhea at that time. She was started on Questran and was supposed to follow up with me, but was lost to follow up. She was recently seen by Dr. Britton for this diarrhea and he performed a colonoscopy and cold snare biopsy of a few polyps in her ascending colon. She presents after readmission over the weekend with severe right-sided pain. Her CT scan shows thickened wall consistent with inflammation of the ascending colon. She denies nausea or vomiting. She is tolerating the clear liquid diet. OBJECTIVE: VITAL SIGNS: Her pulse is 99, respirations 18, blood pressure 121/83, and she is afebrile. GENERAL: She is angry, but in no other acute distress. CHEST: Clear. HEART: Regular rate. ABDOMEN: Soft, tender in the right abdomen. She does not have rebound tenderness. LABORATORY DATA: White blood cell count is 12, hemoglobin 11.9, platelet count is 147, she has 78 neutrophils only and 6 bands. Creatinine 0.53, sodium 135, and potassium 3.2. Urine was clear on readmission. IMAGING DATA: CT scan back on 10/03/2019 revealed abnormal mucosal edema of the right hemicolon with inflammatory changes and fluid adjacent mesentery. Differential included inflammatory, infectious, reactive process. ASSESSMENT: 1. Chronic diarrhea after laparoscopic cholecystectomy, but lost to follow up, now just recently established relationship with GI. 2. Right-sided severe abdominal pain after screening colonoscopy with CT showing inflammatory change of the right colon without perforation, hemodynamically stable. PLAN: I am not sure what the etiology is of this acute inflammatory change. She only had cold snare biopsy. There was no evidence of significant perforation on the first CT scan. We discussed possible operative intervention, which she does not want to discuss as an option. I explained to her that my hope is that with supportive care, she will get better, but she specifically turns down in the operative intervention. I offered a second opinion and given her underlying anger with myself and she said she is going to think about it. I offered that her first desktop support consultant surgeon this weekend, Dr. Cardona, could resume her care tomorrow and she is amenable to that and she would prefer that. So, my plan would be continued supportive care, allow clear liquids. Continue Zosyn. Dr. Cardona to resume her care tomorrow. Job ID: [id number]
[2019-10-05] MEDS: HYDROcodone/Acetaminophen 5/325 mg Tablet PO PRN (15:44)
--- NOTE | 2019-10-05 15:59 | PDOC.HOSPP ---
- Subjective Encounter Date: 10/05/19 Subjective: The patient was seen and examined. Her pain is better today. She feels hungry and asks for a more solid food. She is having bowel movements and passing gas. - Objective Vital Signs & Weight: Vital Signs (12 hours) Temp Pulse Resp BP Pulse Ox 10/05/19 12:53 97.8 F 99 18 121/83 95 10/05/19 12:34 93 16 99 10/05/19 09:00 96 10/05/19 08:29 97.5 F L 96 16 127/87 96 10/05/19 06:50 94 16 94 L 10/05/19 04:00 98.2 F 98 20 124/80 94 L Weight Weight 132 lb 9.6 oz I&O: 10/04/19 10/05/19 10/06/19 06:59 06:59 06:59 Intake Total 3050 1460 Output Total 5250 Balance -2200 1460 Result Diagrams: 10/05/19 08:24 10/05/19 08:24 Hospitalist ROS - Medication Medications: Active Medications Generic Name Dose Route Start Last Admin Trade Name Freq PRN Reason Stop Dose Admin Acetaminophen 1,000 mg 10/04/19 09:00 10/05/19 15:47 Tylenol PO Not Given 0300,0900,1500,2100 KENIA Hydrocodone Bitart/Acetaminophen 1 tab 10/05/19 11:42 10/05/19 15:44 [place] 5/325 PO 1 tab Q4H PRN Administration Moderate Pain (4-6) Albuterol/Ipratropium 3 ml 10/03/19 18:30 10/05/19 12:34 Duoneb NEB 3 ml TID-RT KENIA Administration Alprazolam 0.25 mg 10/03/19 14:20 10/05/19 12:34 Xanax PO 0.25 mg BIDPRN PRN Administration Anxiety Diazepam 5 mg 10/03/19 21:00 10/05/19 09:52 Valium PO 5 mg BID KENIA Administration Duloxetine HCl 90 mg 10/04/19 09:00 10/05/19 09:48 Cymbalta PO 90 mg DAILY KENIA Administration Heparin Sodium (Porcine) 5,000 units 10/03/19 09:00 10/05/19 15:44 Heparin SC 5,000 units TID KENIA Administration Piperacillin Sod/Tazobactam 100 mls @ 200 mls/hr 10/03/19 12:00 10/05/19 12: 33 Sod 3.375 gm/ Sodium Chloride IVPB 100 mls Q6HR KENIA Administration Pantoprazole Sodium 40 mg 10/04/19 09:00 10/05/19 09:51 Protonix PO 40 mg DAILY KENIA Administration Tramadol HCl 50 mg 10/04/19 12:15 10/05/19 12:34 Ultram PO 50 mg Q6H KENIA Administration - Exam General Appearance: NAD, awake alert Eye: PERRL, anicteric sclera ENT: normocephalic atraumatic Neck: supple, no JVD Heart: RRR, no murmur, no gallops Respiratory: CTAB Gastrointestinal: soft, non-distended, tender to palpation Neurological: cranial nerve grossly intact, no focal deficits Hosp A/P (1) Sepsis Code(s): A41.9 - SEPSIS, UNSPECIFIED ORGANISM Status: Acute Qualifiers: Sepsis acute organ dysfunction status: without acute organ dysfunction (2) Peritonitis Code(s): K65.9 - PERITONITIS, UNSPECIFIED Status: Acute (3) Hypertension Code(s): I10 - ESSENTIAL (PRIMARY) HYPERTENSION Status: Acute Qualifiers: Hypertension type: essential hypertension Qualified Code(s): I10 - Essential (primary) hypertension (4) Status post colonoscopy Code(s): Z98.890 - OTHER SPECIFIED POSTPROCEDURAL STATES Status: Acute - Plan 10/03: Sepsis due to peritonitis likely due to microperforation and translocation of bacteria following colonoscopy with polypectomy. Likely organisms are gram negative bacilli. Start IV Zosyn, IVF, Hydromorphone INTERIM CONTROLLER and zofran prn. Check LA, CBC,BMP,Blood culture. 10/04: The patient was seen and examined this morning. She reports that her pain is now at a level of 7 compared to 10 yesterday. No bowel movements were is reported, however she passed gas yesterday and today. She is denying any nausea or vomiting. Over a liter of urine is present in the [place] catheter bag. She was able to ambulate with difficulty due to pain. On examination, her bowel sounds are less than yesterday. Hypokalemia was noted the laboratory studies. Blood culture positive for E. coli. Leukocytosis improving. Continue IV Zosyn and follow final cultures and identification data. Encourage ambulation. No indication for surgery at this time per surgical team. Ileus is present likely exacerbated by opioids and hypokalemia. We will replace her potassium orally as the patient was unable to tolerate IV replacement. Oral tramadol has been started to help wean off Dilaudid INTERIM CONTROLLER. 10/05: The patient is clinically improving. We will advance diet as tolerated. Continue IV antibiotics. E. coli is sensitive to current antibiotics. Her leukocytosis is stable. We will check CBC with manual differential tomorrow. INTERIM CONTROLLER pump has been discontinued and the patient will be maintained on oral pain medications.
[2019-10-06] MEDS: traMADol HCl 50 MG TAB PO SCH ×4 (01:01→18:23)
[2019-10-06] MEDS: Piperacillin/Tazobactam 3.375 GM in Sodium Chloride 0.9% 100 ML IVPB SCH ×3 (01:01→11:54)
[2019-10-06] MEDS: HYDROcodone/Acetaminophen 5/325 mg Tablet PO PRN ×4 (02:16→22:47)
[2019-10-06] MEDS: Acetaminophen 500 MG TAB PO SCH (03:35)
[2019-10-06 06:00] LABS: Anion Gap 14 mmol/L (10-20); BUN (Urea Nitrogen) Less than 4 mg/dL (9.8-20.1); Calc. Creatinine Clearance 107 mL/min (70-130); Calcium 7.8 mg/dL (7.8-10.44); Carbon Dioxide 22 mmol/L (22-29); Chloride 102 mmol/L (98-107); Estimated GFR-MDRD Greater than 90; Glucose 83 mg/dL (70-105); Potassium 4.1 mmol/L (3.5-5.1); Sodium 134 mmol/L (136-145)
[2019-10-06 06:14] LABS: Hemoglobin 11.9 g/dL (12.0-16.0); Mean Corpuscular HGB CONC 31.8 g/dL (32.0-36.0); Mean Corpuscular Hemoglobin 31.7 pg (27.0-31.0); Mean Corpuscular Volume 99.6 fL (78.0-98.0); Mean Platelet Volume 8.3 fL (7.4-10.4); Platelet Count 173 thou/uL (130-400); RBC Distribution Width 11.4 % (11.5-14.5); Red Blood Cell (RBC) Count 3.76 mill/uL (4.20-5.40); White Blood Cell (WBC) Count 10.3 thou/uL (4.8-10.8)
[2019-10-06 06:15] LABS: Band 1 % (5-11); Eosinophils 4 % (0-10); Lymphocytes 15 % (21-51); MDiff Complete? YES; Monocytes 4 % (0-10); Neutrophil 75 % (42-75); Platelet Morphology Comment Appears Adequate
[2019-10-06] MEDS ORDERED: Acetaminophen 500 MG TAB PO SCH (08:37)
[2019-10-06 08:43] LABS: Magnesium 2.1 mg/dL (1.6-2.6); Phosphorus 2.2 mg/dL (2.3-4.7)
[2019-10-06] MEDS: DULoxetine 30 MG CAP PO SCH (09:33)
[2019-10-06] MEDS: Diazepam 5 MG TAB PO SCH ×2 (09:34→20:13)
[2019-10-06] MEDS: Heparin 5,000 UNITS/ML VIAL SC SCH ×3 (09:35→20:13)
[2019-10-06] MEDS: Acetaminophen 325 MG TAB PO SCH ×3 (09:40→20:12)
[2019-10-06] MEDS ORDERED: Iopamidol-370 76% 500 ML 1 ML ONE (14:03)
--- NOTE | 2019-10-06 15:02 | CT ---
CT ABDOMEN AND PELVIS WITH IV CONTRAST 10/06/2019 CLINICAL INFORMATION: Right lower quadrant abdominal pain. Peritonitis. History of cholecystectomy and hysterectomy. COMPARISON: 10/03/2019 Technique: Multiple contiguous axial CT images are obtained through the abdomen and pelvis with IV contrast. Cor onal reformatted images are provided. FINDINGS: Lower Chest: Trace bilateral pleural effusions and passive atelectasis are present at each lung base. Subtle greater parenchymal airspace disease is seen at the left lung base; superimposed pneumonia left lung base cannot be entirely excluded. There is a stable ostomy 4 mm pulmonary nodule in the rig ht middle lobe. Vessels: Vascular calcifications are seen in the abdominal aorta and involving the iliac arteries. Abdomen: Portal vein:Patent Gallbladder: Surgically absent. Liver: Enlarged in craniocaudal dimensions measuring 18 cm. There is diminished attenuation of the li terence again suggesting fatty infiltration. Spleen: within normal limits. Pancreas: within normal limits. Adrenals: within normal limits. Kidneys: Again noted is mild calyceal dilatation of each kidney greater on the right. However, this f inding is stable compared to the prior exam and also had a similar appearance on study in 2002. The ureters are normal in caliber bilaterally. Bowel: Mucosal thickening involving the ascending colon is again seen, and the colon is now dilated m easuring up to 7.8 cm in greatest transverse dimension. Contrast is seen centrally within the lumen without obstruction. Pericolonic inflammatory changes are also again seen in this region. Scattered c olonic diverticula are seen throughout the colon. Appendix: The appendix is visualized and normal in caliber. Peritoneum: No ascites or free air; no fluid collection. Mesentery and Retroperitoneum: No enlarged mesenteric or retroperitoneal lymph nodes. Abdominal Wall: Minimal subcutaneous edema anteriorly and from the location which could be related to recent injections or minimal contusion. Pelvis: Reproductive Organs: Obscured due to streak artifact from bilateral total hip prostheses, the uterus does appear absent. Patient reports history of prior hysterectomy. Pelvis within normal limits. Bladder: Incompletely distended and obscured due to streak artifact. Bones: Degenerative changes in the spine with grade 1 anterolisthesis of L5 on S1 and prominent facet degenerative changes at this level in addition to L4 pars defects. IMPRESSION: 1. Persistent abnormal bowel wall thickening involving the ascending colon. The colon in this region is now dilated measuring up to 7.8 cm in diameter. Persistent pericolonic inflammatory changes are also seen in this region. Findings again may be related to infectious or inflammatory colitis. The de gree of mucosal thickening does appear improved with decreased attenuation seen surrounding contrast centrally in the ascending colon. 2. Stable mild dilatation predominantly involving the inferior pole of each renal collecting system. However, this is unchanged dating back to 2002 and may represent congenital variant. Each ureter is normal in caliber. 3. Interval development of trace bilateral pleural effusions probable passive atelectasis at each basil g base. Developing pneumonia at the left lung base cannot be entirely excluded. 4. Hepatomegaly with diffuse fatty infiltration of the liver.
--- NOTE | 2019-10-06 15:32 | PDOC.HOSPP ---
- Subjective Encounter Date: 10/06/19 Subjective: The patient was seen and examined. She is able to tolerate her diet, however, her abdominal pain is still prominent. Examination revealed tenderness over the right lower quadrant. - Objective Vital Signs & Weight: Vital Signs (12 hours) Temp Pulse Resp BP Pulse Ox 10/06/19 13:47 96 16 98 10/06/19 09:00 93 L 10/06/19 07:47 97.6 F 89 19 131/85 92 L 10/06/19 06:50 95 16 95 Weight Weight 132 lb 9.6 oz I&O: 10/05/19 10/06/19 10/07/19 06:59 06:59 06:59 Intake Total 1460 Balance 1460 Result Diagrams: 10/06/19 05:23 10/06/19 05:23 Hospitalist ROS - Medication Medications: Active Medications Generic Name Dose Route Start Last Admin Trade Name Freq PRN Reason Stop Dose Admin Acetaminophen 650 mg 10/06/19 09:00 10/06/19 09:40 Tylenol PO Not Given 0300,0900,1500,2100 KENIA Hydrocodone Bitart/Acetaminophen 1 tab 10/05/19 11:42 10/06/19 09:39 [place]ula 5/325 PO 1 tab Q4H PRN Administration Moderate Pain (4-6) Albuterol/Ipratropium 3 ml 10/03/19 18:30 10/06/19 13:47 Duoneb NEB 3 ml TID-RT KENIA Administration Alprazolam 0.25 mg 10/03/19 14:20 10/05/19 12:34 Xanax PO 0.25 mg BIDPRN PRN Administration Anxiety Diazepam 5 mg 10/03/19 21:00 10/06/19 09:34 Valium PO 5 mg BID KENIA Administration Duloxetine HCl 90 mg 10/04/19 09:00 10/06/19 09:33 Cymbalta PO 90 mg DAILY KENIA Administration Heparin Sodium (Porcine) 5,000 units 10/03/19 09:00 10/06/19 09:35 Heparin SC 5,000 units TID KENIA Administration Piperacillin Sod/Tazobactam 100 mls @ 200 mls/hr 10/03/19 12:00 10/06/19 11: 54 Sod 3.375 gm/ Sodium Chloride IVPB 100 mls Q6HR KENIA Administration Sodium Phosphate 30 mmol/ 510 mls @ 85 mls/hr 10/06/19 12:00 10/06/19 11:55 Sodium Chloride IVPB 10/06/19 17:59 510 mls 1200 KENIA Administration Pantoprazole Sodium 40 mg 10/04/19 09:00 10/06/19 09:34 Protonix PO 40 mg DAILY KENIA Administration Sodium Chloride 10 ml 10/05/19 21:00 10/06/19 09:35 Flush - Normal Saline IVF 10 ml Q12HR KENIA Administration Sodium Chloride 10 ml 10/05/19 17:25 10/06/19 12:05 Flush - Normal Saline IVF 10 ml PRN PRN Administration Saline Flush Tramadol HCl 50 mg 10/04/19 12:15 10/06/19 12:12 Ultram PO 50 mg Q6H KENIA Administration - Exam General Appearance: NAD, awake alert Eye: PERRL, anicteric sclera ENT: normocephalic atraumatic Neck: supple Heart: RRR, no murmur, no gallops, no rubs Respiratory: CTAB, no wheezes, no rales, no ronchi Gastrointestinal: soft, normal bowel sounds, tender to palpation Neurological: cranial nerve grossly intact, no focal deficits Psychiatric: A&O x 3 Hosp A/P (1) Sepsis Code(s): A41.9 - SEPSIS, UNSPECIFIED ORGANISM Status: Acute Qualifiers: Sepsis acute organ dysfunction status: without acute organ dysfunction (2) Peritonitis Code(s): K65.9 - PERITONITIS, UNSPECIFIED Status: Acute (3) Hypertension Code(s): I10 - ESSENTIAL (PRIMARY) HYPERTENSION Status: Acute Qualifiers: Hypertension type: essential hypertension Qualified Code(s): I10 - Essential (primary) hypertension (4) Status post colonoscopy Code(s): Z98.890 - OTHER SPECIFIED POSTPROCEDURAL STATES Status: Acute - Plan 10/03: Sepsis due to peritonitis likely due to microperforation and translocation of bacteria following colonoscopy with polypectomy. Likely organisms are gram negative bacilli. Start IV Zosyn, IVF, Hydromorphone EXCELSIOR MACHINE TENDER and zofran prn. Check LA, CBC,BMP,Blood culture. 10/04: The patient was seen and examined this morning. She reports that her pain is now at a level of 7 compared to 10 yesterday. No bowel movements were is reported, however she passed gas yesterday and today. She is denying any nausea or vomiting. Over a liter of urine is present in the Mosqueda catheter bag. She was able to ambulate with difficulty due to pain. On examination, her bowel sounds are less than yesterday. Hypokalemia was noted the laboratory studies. Blood culture positive for E. coli. Leukocytosis improving. Continue IV Zosyn and follow final cultures and identification data. Encourage ambulation. No indication for surgery at this time per surgical team. Ileus is present likely exacerbated by opioids and hypokalemia. We will replace her potassium orally as the patient was unable to tolerate IV replacement. Oral tramadol has been started to help wean off Dilaudid EXCELSIOR MACHINE TENDER. 10/05: The patient is clinically improving. We will advance diet as tolerated. Continue IV antibiotics. E. coli is sensitive to current antibiotics. Her leukocytosis is stable. We will check CBC with manual differential tomorrow. EXCELSIOR MACHINE TENDER pump has been discontinued and the patient will be maintained on oral pain medications. 10/06: Sepsis has now resolved. Patient is able to tolerate more oral intake. Her pain, however is still persistent. I have obtained CT scan of the abdomen and pelvis with contrast which showed persistent inflammation in the ascending colon which is now dilated to 7.8 cm. Continue current IV antibiotics. Appreciate further recommendations by the surgical team. This dictation was completed using advanced voice recognition dictation software. There may be some errors in grammar, punctuation, context or verbiage that were not identified and corrected at the time of this dictation. If questions are present, please consult the author of this dictation for further clarification. It is my goal to try to catch these mistakes at the time of dictation but errors may still occur. Thank you for your understanding.
[2019-10-06] MEDS: ALPRAZolam 0.25 MG TAB PO PRN (16:10)
[2019-10-06] MEDS ORDERED: metroNIDAZOLE 500 MG in Premix Bag 1 BAG IVPB SCH (18:00)
[2019-10-06] MEDS: Sodium Chloride 0.9% 1,000 ML IV SCH (18:08)
--- NOTE | 2019-10-06 18:57 | PRG ---
DATE OF SERVICE: 10/06/2019 SUBJECTIVE: Ms. Mills has had some improvement in her right-sided abdominal pain. It is still at least a 6 or 7/10, more intermittent. She has tolerated some solid food today with no nausea or vomiting. She has had probably 10 loose bowel movements today, which she says is a slight increase from her baseline. There has been no blood in the stool. No further fever. Dr. Cardona ordered C. difficile, which has been sent, and also changed her antibiotics from Zosyn to levofloxacin and Flagyl. Repeat CT scan today demonstrated some minimal reduction in colon wall thickening on the right side, persistent inflammatory changes, colonic dilation to 7.1 cm in that area. There is still no evidence of free air, nothing specifically to suggest ischemia to that part of the colon. OBJECTIVE: VITAL SIGNS: Temperature 97.6, pulse 94, blood pressure 131/85, and 95% oxygen saturation on room air. GENERAL: Sitting up in bed, in no acute distress. HEART: Regular rate and rhythm. LUNGS: Clear to auscultation bilaterally. ABDOMEN: Bowel sounds are present. Soft. Tender to palpation throughout the abdomen, particularly the right side, but no guarding, rebound tenderness. EXTREMITIES: No peripheral edema. LABORATORY STUDIES: WBC is down to 10.3, hemoglobin 11.9, platelets 173. INR 1.0, sodium 134, potassium 4.1, BUN less than 4, creatinine 0.56, phosphorus 2.2, magnesium 2.1, calcium 7.8, glucose 83. CT scan as detailed above. ASSESSMENT AND PLAN: 1. Acute right-sided colitis, following screening colonoscopy with snare polypectomy 4 days ago. 2. Right-sided abdominal pain, secondary to acute right-sided colitis. 3. Escherichia coli bacteremia, on IV antibiotics, recently switched from Zosyn to levofloxacin and Flagyl. I had another long discussion with the patient this evening. Thankfully, her CT scan shows no worsening in right-sided colonic thickening, no interval complication such as perforation, nothing to suggest a vascular issue here. It still remains unclear why exactly this occurred. I agree with checking C. difficile, and in fact, I am going to expand the stool studies by ordering stool culture, Cyclospora, ova and parasite, fecal lactoferrin. Agree with continuing antibiotics. Dietary advancement at the discretion of the surgical service. I do agree with nonoperative management, and my expectation is that the patient's pain is going to continue to slowly resolve. 4. Chronic diarrhea. This has really been more of a chronic issue for her for several years, which she has always related to her cholecystectomy. We discussed that she really has not had any workup for this through the years, and there are multiple things that we can look at and try in order to get better control of her symptoms. Note that I did not see any evidence of chronic inflammatory disease on her recent colonoscopy, and this finding of right-sided colitis is more acute since then. We are checking expanded stool studies as detailed above. Once she gets over this acute episode, we have a plan to trial her on cholestyramine. If this is not beneficial and stool studies are otherwise unrevealing, I could also consider a 2-week course of rifaximin or trial pancreatic enzyme supplementation. I appreciate the assistance of the surgical service and primary service. GI will continue to follow along. Please call anytime with questions or concerns. Job ID: [id number]
[2019-10-06] MEDS ORDERED: metroNIDAZOLE 500 MG TAB PO SCH (21:00)
[2019-10-07] MEDS: Piperacillin/Tazobactam 3.375 GM in Sodium Chloride 0.9% 100 ML IVPB SCH ×2 (01:06→05:36)
[2019-10-07] MEDS: traMADol HCl 50 MG TAB PO SCH ×2 (01:06→05:37)
[2019-10-07] MEDS: Acetaminophen 325 MG TAB PO SCH ×4 (04:00→19:58)
[2019-10-07] MEDS: Sodium Chloride 0.9% 1,000 ML IV SCH ×3 (05:15→21:20)
[2019-10-07 05:53] LABS: Band 1 % (5-11); Eosinophils 2 % (0-10); Hemoglobin 11.8 g/dL (12.0-16.0); Hypochromia SLIGHT = 6-15 cells (100X) (0-5/hpf); Lymphocytes 13 % (21-51); MDiff Complete? YES; Mean Corpuscular HGB CONC 33.3 g/dL (32.0-36.0); Mean Corpuscular Hemoglobin 32.5 pg (27.0-31.0); Mean Corpuscular Volume 97.4 fL (78.0-98.0); Monocytes 11 % (0-10); Neutrophil 73 % (42-75); Platelet Count 207 thou/uL (130-400); Platelet Morphology Comment Appears Adequate; RBC Distribution Width 11.4 % (11.5-14.5); Red Blood Cell (RBC) Count 3.64 mill/uL (4.20-5.40); White Blood Cell (WBC) Count 7.1 thou/uL (4.8-10.8)
[2019-10-07 06:05] LABS: Phosphorus 2.6 mg/dL (2.3-4.7)
[2019-10-07 06:07] LABS: Anion Gap 10 mmol/L (10-20); BUN (Urea Nitrogen) Less than 4 mg/dL (9.8-20.1); Calc. Creatinine Clearance 108 mL/min (70-130); Carbon Dioxide 25 mmol/L (22-29); Chloride 104 mmol/L (98-107); Estimated GFR-MDRD Greater than 90; Glucose 87 mg/dL (70-105); Magnesium 2.1 mg/dL (1.6-2.6); Potassium 3.9 mmol/L (3.5-5.1); Sodium 135 mmol/L (136-145)
--- NOTE | 2019-10-07 07:54 | PRG ---
DATE OF SERVICE: 10/06/2019 SUBJECTIVE: The patient was seen this morning and this afternoon on rounds. She reported persistent right lower quadrant abdominal pain, rating her pain this morning at 8/10. She reports previously pain had improved to 6 a couple of days ago, but now the pain is back at 8. She has been tolerating a full liquid diet. She continues to ambulate and have loose bowel movements multiple times a day. The patient does have a history of chronic diarrhea for the past several years status post lap akanksha. The patient is afebrile and hemodynamically stable. OBJECTIVE: VITAL SIGNS: Temperature 98.6, pulse 89, respirations 19, oxygen saturation 92% on room air, and blood pressure 131/85. GENERAL: Well-appearing middle-aged female, sitting up in bed with no signs of acute distress. PULMONARY: Equal chest rise and fall. Clear breath sounds bilaterally. No signs of acute respiratory distress. CARDIAC: Regular rate and rhythm. GI: Abdomen is soft, tender in the right lower quadrant, and mildly distended. She does have positive active bowel sounds. EXTREMITIES: 2+ pulses in all extremities. Gross motor and sensation intact. No significant swelling noted. NEUROLOGIC: GCS is 15. LABORATORY FINDING: White count 10.3, hemoglobin 11.9, hematocrit 37.5, and platelets 173. Sodium 134, potassium 4.1, chloride 102, carbon dioxide 22, BUN less than 4, creatinine 0.56, phosphorus 2.2, and magnesium 2.1. DIAGNOSTIC FINDINGS: CT scan of the abdomen and pelvis with contrast completed today demonstrated persistent abdominal bowel wall thickening involving the ascending colon. The colon in this region is now dilated, measuring up to 7.8 cm in diameter. Persistent pericolic inflammatory changes are also seen in the region. Findings again may be related to infectious or inflammatory colitis. The degree of mucosal thickening does appear improved with decreased attenuation seen surrounding contrast centrally in the ascending colon. Stable mild dilation predominantly involving the inferior pole of the renal collecting system; however, this unchanged dating back to 2002 and may represent congenital variant. Each ureter is normal in caliber. Interval development of trace bilateral pleural effusions, probably passive atelectasis at each base, developing pneumonia in the left lung base cannot be entirely excluded, hepatomegaly with diffuse fatty infiltration of the liver. ASSESSMENT: 1. Postprocedure day 5 status post screening colonoscopy with polypectomy x2, stable acute peritonitis. 2. Escherichia coli bacteremia secondary to stable acute peritonitis. 3. Acute hypophosphatemia. 4. Acute colitis, likely infectious. PLAN: The patient will be made n.p.o. with ice chips only, normal saline at 100 an hour. This is to promote bowel rest. The patient needs to continue to ambulate as much as possible. We will check stool for C-Diff. The patient will also be started on Florastor. We will change the antibiotics to levofloxacin and Flagyl. The patient to receive sodium phosphorus IV for electrolyte replacement. Continue to promote ambulation as much as possible. There is no indication for surgery at this time. We will continue to closely monitor the patient. Continue DVT prophylaxis with subcu heparin. Job ID: [id number]
[2019-10-07] MEDS: Heparin 5,000 UNITS/ML VIAL SC SCH ×3 (08:33→19:59)
[2019-10-07] MEDS: Diazepam 5 MG TAB PO SCH ×2 (08:34→19:58)
[2019-10-07] MEDS: Saccharomyces boulardii 250 MG CAP PO SCH (08:34)
[2019-10-07] MEDS: DULoxetine 30 MG CAP PO SCH (08:34)
[2019-10-07] MEDS ORDERED: traMADol HCl 50 MG TAB PO PRN ×2 (10:44→10:45)
[2019-10-07] MEDS: Cholestyramine/Aspartame 4 gm Packet PO SCH ×2 (11:38→21:19)
--- NOTE | 2019-10-07 12:11 | PRG ---
DATE OF SERVICE: 10/07/2019 SUBJECTIVE: Ms. Mills is a 58-year-old woman, who recently underwent a colonoscopy. She has developed abdominal pain with E coli bacteremia. She was managed conservatively with IV antibiotics and bowel rest. Interval CT scan of the abdomen and pelvis had failed to reveal any pneumoperitoneum or free fluid to suggest free perforation. Of note, however, ascending colonic wall thickening suggestive of colitis. Stool studies to date are negative. The patient reports 5/10 abdominal pain this morning, down from 9/10 yesterday. She denies any fevers or chills. She denies any nausea. She is having bowel movements and passing flatus. She ambulates with minimum difficulty. OBJECTIVE: VITAL SIGNS: Her vital signs this morning include blood pressure 133/80, pulse is 90, respirations 14, maximum temperature in last 24 hours is 98.1 degrees Fahrenheit, oxygen saturation is 93% on room air. ABDOMEN: Soft, moderately distended with right sided tenderness to palpation. She has no rebound tenderness present. NEUROLOGIC: Reveals no focal deficits present. LABORATORY FINDINGS: Today include a CBC with 7100 white blood cells, hemoglobin and hematocrit are 11.8 and 35.4 respectively. Platelet count is 207,000. Differential counts as follows; 73 segmented neutrophils, 1 band, 13 lymphocytes, and 2 eosinophils. White blood cell count today is normal when compared to admitting white blood cell count of 16,500 with 24% bands. Metabolic profile today includes sodium 135, potassium 3.9, chloride is 104, bicarb is 25, BUN is 4, creatinine is 0.55, glucose is 87, magnesium is 2.1, and phosphorus 2.6. IMPRESSION: Resolving abdominal pain secondary to ascending colitis. E coli bacteremia resolving. PLAN: 1. We will convert antibiotic therapy to oral Bactrim DS in combination with metronidazole as the E coli appears to be resistant to fluoroquinolones, although sensitive to Zosyn. We will not place this patient on Augmentin, which may exacerbate her frequent bowel movements. 2. We will initiate a full liquid diet and advance as tolerated. 3. If the patient continues to tolerate diet, remaining hemodynamically stable without any exacerbation of abdominal pain, consideration will be given to discharge tomorrow. Above findings and plan discussed with the patient, who indicates understanding information given. I have answered her questions. Job ID: [id number]
--- NOTE | 2019-10-07 13:58 | PRG ---
DATE OF SERVICE: 10/07/2019 SUBJECTIVE: Ms. Mills is feeling considerably better today. Her abdominal pain persists but is much less in intensity and frequency. It is more of a dull pain and less sharp. She is able to ambulate well. She is not having any nausea or vomiting. She is tolerating chicken noodle soup right now with no problems, no increase in pain. She continues to have her chronically loose bowel movements, but no blood in the stool. She has been afebrile. OBJECTIVE: VITAL SIGNS: Temperature 98.1, pulse 111, blood pressure 133/80, and 96% oxygen saturation on room air. GENERAL: Sitting up in bed comfortably, in no distress, in better spirits today. HEART: Regular rate and rhythm. LUNGS: Clear to auscultation bilaterally. ABDOMEN: Bowel sounds present. Soft, dry box tender to palpation in the right abdomen, but no guarding, rebound, or tenderness. EXTREMITIES: No peripheral edema. LABORATORY STUDIES: WBC down to 7.1, hemoglobin stable at 11.8, platelets 207. Sodium 135, potassium 3.9, BUN less than 4, creatinine 0.55, glucose 87, calcium 8.0, phosphorus 2.6, magnesium 2.1. ASSESSMENT AND PLAN: 1. Acute right-sided colitis, following colonoscopy 5 days ago. 2. Right-sided abdominal pain, secondary to acute right-sided colitis, clinically improving. 3. Escherichia coli bacteremia, on antibiotics, recently switched from IV Zosyn, now to oral Bactrim and Flagyl. 4. Tubular adenomas x4, all small polyps were removed with cold snare polypectomy 5 days ago. I am pleased with the patient's clinical improvement over the past couple of days. Note that stool studies are negative for Clostridium difficile and stool culture, and rapid parasite screen also negative at this point. I still wonder if the patient might have had an ischemic event, which precipitated this presentation. No significant abnormalities of the vasculature on her CT scan from yesterday. At any rate, this episode does appear to be clinically resolving, managed nonoperatively. I appreciate the assistance of the primary service as well as Dr. Cardona. The patient is advancing her diet well. I agree that if she does well overnight and is feeling well tomorrow, she could potentially be discharged from the hospital, to finish up oral antibiotics as outpatient. 5. Chronic diarrhea. This has been a chronic issue for her for several years. My plan had been to trial her on colestipol 1 g twice daily, and she is going to pick this up after hospital discharge and get started on as an outpatient. We will plan to follow up with her in clinic in the next few weeks. If she has partial improvement with this, then we could potentially go up on the dose and see how she does. If no improvement at all, we could still trial her on a 2-week course of rifaximin, or pancreatic enzyme supplementation. Please call anytime with questions or concerns. Job ID: [id number]
[2019-10-07] MEDS: metroNIDAZOLE 500 MG TAB PO SCH ×2 (15:00→19:59)
--- NOTE | 2019-10-07 16:57 | PDOC.HOSPP ---
- Subjective Encounter Date: 10/07/19 Subjective: Reported improvement in her pain. Tolerating advancement of diet. - Objective Vital Signs & Weight: Vital Signs (12 hours) Temp Pulse Resp BP Pulse Ox 10/07/19 13:27 90 14 10/07/19 08:32 98.1 F 111 H 20 133/80 96 10/07/19 07:01 90 14 10/07/19 05:43 88 93 L Weight Weight 132 lb 9.6 oz I&O: 10/06/19 10/07/19 10/08/19 06:59 06:59 06:59 Intake Total 1460 1700 Balance 1460 1700 Result Diagrams: 10/07/19 05:15 10/07/19 05:15 Hospitalist ROS - Medication Medications: Active Medications Generic Name Dose Route Start Last Admin Trade Name Freq PRN Reason Stop Dose Admin Acetaminophen 650 mg 10/06/19 09:00 10/07/19 14:54 Tylenol PO Not Given 0300,0900,1500,2100 KENIA Albuterol/Ipratropium 3 ml 10/03/19 18:30 10/07/19 13:27 Duoneb NEB 3 ml TID-RT KENIA Administration Cholestyramine Resin 4 gm 10/07/19 10:00 10/07/19 11:38 Questran Light PO 4 gm 1000,2200 KENIA Administration Diazepam 5 mg 10/03/19 21:00 10/07/19 08:34 Valium PO 5 mg BID KENIA Administration Duloxetine HCl 90 mg 10/04/19 09:00 10/07/19 08:34 Cymbalta PO 90 mg DAILY KENIA Administration Heparin Sodium (Porcine) 5,000 units 10/03/19 09:00 10/07/19 15:00 Heparin SC 5,000 units TID KENIA Administration Sodium Chloride 1,000 mls @ 100 mls/hr 10/06/19 17:15 10/07/19 08:35 Normal Saline 0.9% IV 1,000 mls .Q10H KENIA Administration Metronidazole 500 mg 10/07/19 15:00 10/07/19 15:00 Flagyl PO 500 mg TID KENIA Administration Pantoprazole Sodium 40 mg 10/04/19 09:00 10/07/19 08:34 Protonix PO 40 mg DAILY KENIA Administration Saccharomyces Boulardii 250 mg 10/07/19 09:00 10/07/19 08:34 Florastor PO 250 mg DAILY KENIA Administration Sodium Chloride 10 ml 10/05/19 21:00 10/07/19 08:34 Flush - Normal Saline IVF Not Given Q12HR KENIA Sodium Chloride 10 ml 10/05/19 17:25 10/06/19 12:05 Flush - Normal Saline IVF 10 ml PRN PRN Administration Saline Flush Tramadol HCl 50 mg 10/07/19 10:45 10/07/19 11:44 Ultram PO 50 mg Q6H PRN Administration Moderate Pain (4-6) Hosp A/P (1) Sepsis Code(s): A41.9 - SEPSIS, UNSPECIFIED ORGANISM Status: Acute Qualifiers: Sepsis acute organ dysfunction status: without acute organ dysfunction (2) Peritonitis Code(s): K65.9 - PERITONITIS, UNSPECIFIED Status: Acute (3) Hypertension Code(s): I10 - ESSENTIAL (PRIMARY) HYPERTENSION Status: Acute Qualifiers: Hypertension type: essential hypertension Qualified Code(s): I10 - Essential (primary) hypertension (4) Status post colonoscopy Code(s): Z98.890 - OTHER SPECIFIED POSTPROCEDURAL STATES Status: Acute - Plan 10/03: Sepsis due to peritonitis likely due to microperforation and translocation of bacteria following colonoscopy with polypectomy. Likely organisms are gram negative bacilli. Start IV Zosyn, IVF, Hydromorphone GERMAN INSTRUCTOR and zofran prn. Check LA, CBC,BMP,Blood culture. 10/04: The patient was seen and examined this morning. She reports that her pain is now at a level of 7 compared to 10 yesterday. No bowel movements were is reported, however she passed gas yesterday and today. She is denying any nausea or vomiting. Over a liter of urine is present in the Mosqueda catheter bag. She was able to ambulate with difficulty due to pain. On examination, her bowel sounds are less than yesterday. Hypokalemia was noted the laboratory studies. Blood culture positive for E. coli. Leukocytosis improving. Continue IV Zosyn and follow final cultures and identification data. Encourage ambulation. No indication for surgery at this time per surgical team. Ileus is present likely exacerbated by opioids and hypokalemia. We will replace her potassium orally as the patient was unable to tolerate IV replacement. Oral tramadol has been started to help wean off Dilaudid GERMAN INSTRUCTOR. 10/05: The patient is clinically improving. We will advance diet as tolerated. Continue IV antibiotics. E. coli is sensitive to current antibiotics. Her leukocytosis is stable. We will check CBC with manual differential tomorrow. GERMAN INSTRUCTOR pump has been discontinued and the patient will be maintained on oral pain medications. 10/06: Sepsis has now resolved. Patient is able to tolerate more oral intake. Her pain, however is still persistent. I have obtained CT scan of the abdomen and pelvis with contrast which showed persistent inflammation in the ascending colon which is now dilated to 7.8 cm. Continue current IV antibiotics. Appreciate further recommendations by the surgical team. 10/07: The patient's condition continues to improve. Her pain is better than yesterday. Tolerating her diet. Hopefully we can discharge her soon on oral Bactrim and metronidazole. This dictation was completed using advanced voice recognition dictation software. There may be some errors in grammar, punctuation, context or verbiage that were not identified and corrected at the time of this dictation. If questions are present, please consult the author of this dictation for further clarification. It is my goal to try to catch these mistakes at the time of dictation but errors may still occur. Thank you for your understanding.
[2019-10-07] MEDS: Sulfameth/Trimethoprim DS 800-160mg TAB PO SCH (19:59)
--- NOTE | 2019-10-07 22:52 | PRG ---
DATE OF SERVICE: 10/07/2019 SUBJECTIVE: The patient was seen this evening, sitting up in bed with no signs of acute distress. She reported her pain is much better controlled this evening and reports that it is a 5/10; yesterday, it was 8/10. She has been advanced to a full liquid diet and has tolerated that throughout the day. She continues to have multiple bowel movements, which are chronic. She also reports that she has been ambulating in the hallways. OBJECTIVE: VITAL SIGNS: Temperature 98.2, pulse 93, respirations 18, oxygen saturation 97% on room air, and blood pressure 159/88. GENERAL: Well-appearing middle-aged female, sitting up in bed with no signs of acute distress. PULMONARY: Equal chest rise and fall. No signs of acute respiratory distress. CARDIAC: Regular rate and rhythm. GI: Abdomen is soft, mildly tender to palpation in the right lower quadrant and nondistended. ASSESSMENT: 1. Colitis, likely infectious. 2. History of gastroesophageal reflux disease and hypertension. PLAN: Continue current full liquid diet and pain regimen. Continue normal saline overnight. We will likely discontinue that tomorrow. Continue oral antibiotics with Flagyl and Bactrim. We will consider advancing the patient's diet tomorrow if she continues to improve and likely send her home and likely recommend discharge at that time. Job ID: [id number]
[2019-10-08] MEDS: Acetaminophen 325 MG TAB PO SCH ×2 (04:00→08:20)
[2019-10-08 06:00] LABS: Band 2 % (5-11); Eosinophils 1 % (0-10); Hemoglobin 11.8 g/dL (12.0-16.0); Lymphocytes 27 % (21-51); MDiff Complete? YES; Mean Corpuscular HGB CONC 32.4 g/dL (32.0-36.0); Mean Corpuscular Hemoglobin 32.2 pg (27.0-31.0); Mean Corpuscular Volume 99.4 fL (78.0-98.0); Mean Platelet Volume 8.2 fL (7.4-10.4); Metamyelocyte 1 % (0-0); Monocytes 12 % (0-10); Neutrophil 57 % (42-75); Platelet Count 245 thou/uL (130-400); Platelet Morphology Comment Appears Adequate; RBC Distribution Width 11.6 % (11.5-14.5); Red Blood Cell (RBC) Count 3.66 mill/uL (4.20-5.40); White Blood Cell (WBC) Count 8.2 thou/uL (4.8-10.8)
[2019-10-08 06:02] LABS: Anion Gap 12 mmol/L (10-20); BUN (Urea Nitrogen) 5 mg/dL (9.8-20.1); Calc. Creatinine Clearance 101 mL/min (70-130); Calcium 8.8 mg/dL (7.8-10.44); Carbon Dioxide 24 mmol/L (22-29); Chloride 106 mmol/L (98-107); Estimated GFR-MDRD Greater than 90; Glucose 109 mg/dL (70-105); Sodium 138 mmol/L (136-145)
[2019-10-08 07:52] VITALS: TEMP 98.1
[2019-10-08] MEDS: Diazepam 5 MG TAB PO SCH (08:20)
[2019-10-08] MEDS: DULoxetine 30 MG CAP PO SCH (08:20)
[2019-10-08] MEDS: Heparin 5,000 UNITS/ML VIAL SC SCH (08:20)
[2019-10-08] MEDS: Sulfameth/Trimethoprim DS 800-160mg TAB PO SCH (08:20)
[2019-10-08] MEDS: Saccharomyces boulardii 250 MG CAP PO SCH (08:21)
[2019-10-08] MEDS: metroNIDAZOLE 500 MG TAB PO SCH (08:21)
[2019-10-08] MEDS: Sodium Chloride 0.9% 1,000 ML IV SCH (08:22)
[2019-10-08] MEDS ORDERED: Amlodipine 10 MG TAB PO SCH (09:00)
[2019-10-08] MEDS ORDERED: Estradiol 1 MG TAB PO SCH (09:00)
[2019-10-08] MEDS: Cholestyramine/Aspartame 4 gm Packet PO SCH (10:03)
--- NOTE | 2019-10-08 11:47 | PDOC.GSPN ---
Surgery Progress Note: Subj - Subjective Narrative: Patient is a 58 year old female with history of HTN and chronic diarrhea being followed for infectious colitis found to have e coli bacteremia. Patient reports doing better she was able to tolerate clear liquid diet overnight. Reports improvement in abdominal pain. Diarrhea is at her baseline. She is ambulating well on her own in the hallways. Surgery Progress Note: Obj - Vital signs Vital signs: Vital Signs - Most Recent Temp Pulse Resp BP Pulse Ox 98.1 F 91 16 147/92 H 96 10/08/19 07:51 10/08/19 08:21 10/08/19 07:51 10/08/19 08:21 10/08/19 08:00 - Physical Exam General: no distress, well developed, well nourished Cardiovascular: regular rate and rhythm Abdomen: soft (mild tenderness in RLQ, no rebound, guarding, rigidity, no signs of peritonitis on exam) Surgery Progress Note: Results - Labs Result Diagrams: 10/08/19 05:06 10/08/19 05:06 Lab results: Laboratory Results - last 24 hr 10/08/19 10/08/19 05:06 05:06 WBC 8.2 RBC 3.66 L Hgb 11.8 L Hct 36.4 MCV 99.4 H MCH 32.2 H MCHC 32.4 RDW 11.6 Plt Count 245 MPV 8.2 Neutrophils % (Manual) 57 Band Neuts % (Manual) 2 L Lymphocytes % (Manual) 27 Monocytes % (Manual) 12 H Eosinophils % (Manual) 1 Metamyelocytes % (Man) 1 H Plt Morphology Comment Appears Adequate Sodium 138 Potassium 4.0 Chloride 106 Carbon Dioxide 24 Anion Gap 12 BUN 5 L Creatinine 0.59 L Estimated GFR (MDRD) Greater than 90 Glucose 109 H Calcium 8.8 Surgery Progress Note: A/P - Plan Plan: 58 year old female with a history of HTN and chronic diarrhea being followed for infectious colitis found to have e coli bacteremia. Clinically improving - Vital signs stable, tolerating clear liquid diet, pain improved, and BM at baseline. Diet can be advanced to regular and from surgery standpoint, patient can be discharged if she is able to tolerate regular diet. Patient will continue with PO bactrim and flagyl for total of 14 days and follow up in clinic with trauma service 2 weeks post discharge. Recommend that the patient gets repeat abdominal/pelvis CT w/ IV and PO contrast 1 day prior to follow up appointment with trauma service.
[2019-10-08 14:18] VITALS: BP 135/85
--- NOTE | 2019-10-09 03:38 | DIS ---
DATE OF ADMISSION: 10/03/2019 DATE OF DISCHARGE: 10/08/2019 HISTORY OF PRESENT ILLNESS AND HOSPITAL COURSE: This is a 58-year-old female with past medical history of hypertension and chronic diarrhea after cholecystectomy 6 years ago, who presented to the hospital with severe abdominal pain that started the day before presentation. The patient had a screening colonoscopy 5 hours prior to the initial pain. Her pain gradually got worse through the day and became unbearable. She presented to the ER where she was found to have signs of peritonitis. CT scan of the abdomen revealed finding consistent with colitis of the ascending colon without evidence of free air or perforation. The patient was admitted to the medical floor and treatment with IV fluids and broad-spectrum antibiotics was initiated. A surgical consult was obtained and Dr. Cardona recommended against surgical intervention at that time. Conservative management was continued for 5 days with IV fluids, antibiotics, pain medications, and gradual advancement of her diet. These measures were successful in causing resolution of her sepsis and improvement in her symptoms. On the day of discharge, the patient was able to ambulate without difficulty, her pain was under control, and she was able to tolerate her diet. DISCHARGE DIAGNOSES: 1. Sepsis. 2. Peritonitis. 3. Colitis. 4. Hypertension. 5. Status post colonoscopy. DISCHARGE MEDICATIONS: 1. Amlodipine 10 mg orally daily. 2. Cholestyramine 4 g orally daily. 3. Cymbalta 90 mg orally daily. 4. Estradiol 2 mg orally daily. 5. Xanax 0.5 mg daily as needed for anxiety. 6. Flagyl 500 mg orally three times a day for nine days. 7. Protonix 40 mg orally daily. 8. Florastor 250 mg capsule oral daily. 9. Bactrim DS 1 tablet orally twice daily for 9 days. 10. Tramadol 50 mg orally daily as needed for pain. CONDITION ON DISCHARGE: Stable. DISCHARGE INSTRUCTIONS: Follow up with PCP in 1 week, follow up with Dr. Cardona in 14 days, diet as tolerated with increased fiber, activity as tolerated. Job ID: [id number]
--- NOTE | 2019-10-09 22:28 | PQF ---
[employer] Representative Crystal Reports [employer] YAZMIN Phelps ZACK MATTA [id number] [id number] CLINICAL DOCUMENTATION CLARIFICATION FORM: POST DISCHARGE Addendum to original discharge summary date: ____ Late entry note date: __ DATE: 10/09/19 ATTN: Zack Matta Please exercise your independent, professional judgment in responding to the clarification form. Clinical indicators are provided on the bottom of this form for your review Can you please further clarify the etiology of Sepsis Please check appropriate box(es): [ ] Sepsis due to post operative complication of colonoscopy with polypectomies [ ] Sepsis due to infectious colitis [ ] Other diagnosis please specify: Colonoscopy might have led to colitis( unclear if that is the case) infectious colitis( comfirmed led to sepsis. ____ [ ] Unable to determine In addition, please specify: Present on Admission (POA): [ ] Yes [ ] No [ ] Unable to determine For continuity of documentation, please document condition throughout progress notes and discharge summary. Thank You. CLINICAL INDICATORS - SIGNS / SYMPTOMS / LABS H and P pg.1- Presented to the hospital with severe abdominal pain started yesterday 5hrs after screening colonoscopy with polypectomies H and P pg.3- Sepsis due to peritonitis likely due to microperforation and translocation of bacteria following colonoscopy nad polypectomy General Surgery PN pg.1- followed for infectious colitis found to have e.coli bacteremia DS pg.1- CT scan of the abdomen revealing finding consistent with colitis of ascending colon DS pg.1- "Sepsis" RISK FACTORS S/p colonoscopy- DS pg.1 Peritonitis- DS pg.1 Colitis- DS pg.1 E coli bacteremia- DS.1 TREATMENTS: IV Fluids- MAR Broad spectrum antibiotics- DS pg.1 GI consult 10/03 Dr. Cardona Abdomen/Pelvis CT 10/03 Abdomen Xray 10/03 Blood culture- Microbiology (This form is maintained as a part of the permanent medical record) 2014 [employer] All Rights Reserved [email or web address]
[2019-10-12 16:08] LABS: Cyclospora Smear-Stool None seen (None seen)
== END 2019-10-08 14:33 | disposition home or self-care (01) | DRG 862 ==
LOC: ERS 04:21 → T4-A 08:30
PROVIDERS: ADMIT Emergency Medicine; ATTEND Internal Medicine
DX: T81.40XA Infection following a procedure, unspecified, initial encounter (principal); A41.51 Sepsis due to Escherichia coli [E. coli]; K65.9 Peritonitis, unspecified; K56.7 Ileus, unspecified; A04.4 Other intestinal Escherichia coli infections; T81.44XA Sepsis following a procedure, initial encounter; Y83.8 Other surgical procedures as the cause of abnormal reaction of the patient, or of later complication, without mention of misadventure at the time of the procedure; K21.9 Gastro-esophageal reflux disease without esophagitis; I10 Essential (primary) hypertension; F41.9 Anxiety disorder, unspecified; F32.9 Major depressive disorder, single episode, unspecified; E87.6 Hypokalemia; E83.39 Other disorders of phosphorus metabolism; Z79.899 Other long term (current) drug therapy; Z90.49 Acquired absence of other specified parts of digestive tract
CPT/HCPCS: 36415; 71045; 74018; 74177; 80048; 80053; 81003; 83605; 83630; 83735; 84100; 85007; 85025; 85027; 85610; 85730; 87015; 87040; 87045; 87046; 87077; 87149; 87177; 87186; 87206; 87324; 87328; 87329; 87427; 87449; 94640; 96361; 96365; 96367; 96375; 96376; J1200; J1644; J1885; J1956; J2270; J2405; J2543; J3010; J3475; J3480; J3490; J7050; J7620; Q9967

== ENCOUNTER 2024-07-31 01:59 | Inpatient (IN) | payer SELFPAY, OTHER ==
[2024-07-31] MEDS ORDERED: HYDROmorphone 0.5 MG/0.5 ML SYRINGE ONE ×4 (02:08→10:22)
[2024-07-31] MEDS ORDERED: CEFAZOLIN 2 GM VIAL ONE ×2 (02:14→07:12)
[2024-07-31] MEDS ORDERED: Sodium Chloride 0.9% 100 ML ONE (02:14)
[2024-07-31] MEDS ORDERED: Ondansetron PF 4 MG/2 ML Vial ONE ×2 (02:14→07:35)
[2024-07-31 02:22] LABS: #Basophils 0.05 10x3/uL (0.0-0.2); %Basophils 0.4 % (0.0-1.0); %Eosinophils 1.6 % (0.0-10.0); %Lymphocytes 25.4 % (21.0-51.0); %Monocytes 10.8 % (0.0-10.0); %Neutrophils 61.1 % (42.0-75.0); Hematocrit 37.1 % (36.0-47.0); Hemoglobin 12.4 g/dL (12.0-16.0); Mean Corpuscular HGB CONC 33.4 g/dL (32.0-36.0); Mean Corpuscular Hemoglobin 30.5 pg (27.0-31.0); Mean Corpuscular Volume 91.4 fL (78.0-98.0); Mean Platelet Volume 9.4 fL (7.4-10.4); Platelet Count 268 10x3/uL (130-400); Red Blood Cell (RBC) Count 4.06 mill/uL (4.20-5.40)
[2024-07-31 02:37] LABS: ALT (SGPT) 13 U/L (8-55); AST (SGOT) 21 U/L (5-34); Albumin 3.6 g/dL (3.4-4.8); Alkaline Phosphatase 88 U/L (40-110); Anion Gap 24 mmol/L (10-20); BUN (Urea Nitrogen) 8 mg/dL (9.8-20.1); Bilirubin, Total 0.3 mg/dL (0.2-1.2); Calc. Creatinine Clearance 0 mL/min (70-130); Calcium 8.5 mg/dL (7.8-10.44); Carbon Dioxide 15 mmol/L (23-31); Chloride 100 mmol/L (98-107); Estimated GFR 98; Globulin 4.4 g/dL (2.4-3.5); Glucose 190 mg/dL (80-115); INR-International Normal Ratio 1.2; PTT 37.1 sec (22.9-36.1); Potassium 2.7 mmol/L (3.5-5.1); Prothrombin Time 14.7 sec (12.0-14.7); Sodium 136 mmol/L (136-145)
[2024-07-31] MEDS ORDERED: fentaNYL 50 mcg/mL 1 mL Vial ONE ×5 (02:39→13:00)
[2024-07-31] MEDS ORDERED: Ondansetron PF 4 MG/2 ML Vial IVP PRN (02:48)
[2024-07-31] MEDS ORDERED: Ipratropium/Albuterol 3 ML NEB NEB PRN (02:48)
[2024-07-31] MEDS ORDERED: Sodium Chloride 0.9% 1,000 ML IV SCH (03:00)
[2024-07-31 04:16] VITALS: BMI 28.5
[2024-07-31] MEDS: Piperacillin/Tazobactam 3.375 GM in Sodium Chloride 0.9% 100 ML IVPB SCH ×3 (04:24→18:34)
[2024-07-31] MEDS: traMADol HCl 50 MG TAB PO PRN (04:25)
[2024-07-31] MEDS: Potassium Chloride 20 MEQ TAB PO SCH (04:25)
[2024-07-31 05:03] LABS: #Basophils 0.06 10x3/uL (0.0-0.2); #Eosinophils Less than 0.03 10x3/uL (0.0-0.7); %Basophils 0.4 % (0.0-1.0); %Eosinophils 0.1 % (0.0-10.0); %Lymphocytes 6.1 % (21.0-51.0); %Monocytes 7.6 % (0.0-10.0); %Neutrophils 85.1 % (42.0-75.0); Hematocrit 35.4 % (36.0-47.0); Hemoglobin 11.6 g/dL (12.0-16.0); Mean Corpuscular HGB CONC 32.8 g/dL (32.0-36.0); Mean Corpuscular Hemoglobin 30.7 pg (27.0-31.0); Mean Corpuscular Volume 93.7 fL (78.0-98.0); Mean Platelet Volume 9.5 fL (7.4-10.4); Platelet Count 247 10x3/uL (130-400); RBC Distribution Width 12.2 % (11.5-14.5); Red Blood Cell (RBC) Count 3.78 mill/uL (4.20-5.40)
[2024-07-31] MEDS: Lactated Ringer's 1,000 ML IV SCH (05:10)
[2024-07-31] MEDS: Potassium Chloride 20 MEQ in Premix 1 BAG IVPB SCH (05:12)
[2024-07-31 05:17] LABS: Anion Gap 18 mmol/L (10-20); BUN (Urea Nitrogen) 7 mg/dL (9.8-20.1); Calc. Creatinine Clearance 77 mL/min (70-130); Calcium 8.3 mg/dL (7.8-10.44); Carbon Dioxide 18 mmol/L (23-31); Chloride 101 mmol/L (98-107); Estimated GFR 98; Glucose 161 mg/dL (80-115); Potassium 2.9 mmol/L (3.5-5.1); Sodium 134 mmol/L (136-145)
[2024-07-31] MEDS: Rabies Vaccine Human 2.5 UNITS VIAL IM ONE (05:42)
[2024-07-31] MEDS: Oxazepam 10 MG CAP PO SCH (05:53)
[2024-07-31] MEDS: Acetaminophen 325 MG TAB PO SCH (06:11)
[2024-07-31] MEDS ORDERED: fentaNYL PF 100 MCG/2 ML SYRINGE ONE ×2 (07:15→10:37)
[2024-07-31] MEDS ORDERED: Midazolam HCl 2 mg/2 ml Vial ONE (07:16)
[2024-07-31] MEDS ORDERED: Lidocaine 2% PF 5 ML VIAL ONE (07:16)
[2024-07-31] MEDS ORDERED: PROPOFOL 20 ML ONE (07:16)
[2024-07-31] MEDS ORDERED: Dexamethasone 20 MG/5 ML VIAL ONE (07:35)
[2024-07-31] MEDS ORDERED: HYDROmorphone 2 MG/ML VIAL ONE (07:44)
[2024-07-31] MEDS ORDERED: PHENYLEPHRINE-NS 100 MCG/ML 10 ML SYRINGE ONE (08:16)
[2024-07-31] MEDS ORDERED: Iopamidol-370 76% 500 ML MDV (1 ML CHARGE) ONE (10:23)
[2024-07-31] MEDS ORDERED: Ketorolac Tromethamine 30 MG (1 mL) VIAL ONE (13:02)
[2024-07-31] MEDS: Morphine 2 MG/ML VIAL SLOW IVP PRN (14:03)
[2024-07-31] MEDS: Thiamine 100 MG TAB PO SCH (15:06)
[2024-07-31] MEDS: Famotidine/PF 20 mg/2ml Vial SLOW IVP SCH (15:06)
[2024-07-31] MEDS: Pantoprazole DR 40 MG TAB PO SCH (15:06)
[2024-07-31] MEDS: Folic Acid 1 MG TAB PO SCH (15:06)
[2024-07-31] MEDS: Morphine 4 MG/ML VIAL SLOW IVP PRN (17:05)
[2024-07-31] MEDS: HYDROcodone/Acetaminophen 5/325 mg Tablet PO PRN (20:37)
[2024-07-31] MEDS: Methocarbamol 500 MG TAB PO SCH (20:38)
[2024-07-31 21:39] VITALS: BMI 28.5
[2024-08-01 05:31] LABS: #Basophils Less than 0.03 10x3/uL (0.0-0.2); #Eosinophils Less than 0.03 10x3/uL (0.0-0.7); %Basophils 0.1 % (0.0-1.0); %Lymphocytes 9.5 % (21.0-51.0); %Monocytes 11.1 % (0.0-10.0); %Neutrophils 78.4 % (42.0-75.0); Hematocrit 29.6 % (36.0-47.0); Hemoglobin 9.8 g/dL (12.0-16.0); Mean Corpuscular HGB CONC 33.1 g/dL (32.0-36.0); Mean Corpuscular Hemoglobin 30.8 pg (27.0-31.0); Mean Corpuscular Volume 93.1 fL (78.0-98.0); Platelet Count 207 10x3/uL (130-400); RBC Distribution Width 12.4 % (11.5-14.5); Red Blood Cell (RBC) Count 3.18 mill/uL (4.20-5.40)
[2024-08-01 05:41] LABS: Anion Gap 15 mmol/L (10-20); BUN (Urea Nitrogen) Less than 4 mg/dL (9.8-20.1); Calc. Creatinine Clearance 100 mL/min (70-130); Calcium 7.8 mg/dL (7.8-10.44); Carbon Dioxide 22 mmol/L (23-31); Chloride 102 mmol/L (98-107); Estimated GFR 105; Glucose 109 mg/dL (80-115); Potassium 3.3 mmol/L (3.5-5.1); Sodium 136 mmol/L (136-145)
[2024-08-01] MEDS: Potassium Chloride 20 MEQ in Premix 1 BAG IVPB SCH (06:53)
[2024-08-01] MEDS: Potassium Chloride 20 MEQ TAB PO SCH (06:54)
[2024-08-01] MEDS: DULoxetine 30 MG CAP PO SCH (09:28)
[2024-08-01] MEDS: Amlodipine 10 MG TAB PO SCH (09:29)
[2024-08-01] MEDS: Pantoprazole DR 40 MG TAB PO SCH (09:29)
[2024-08-01] MEDS: Enoxaparin 40 MG (0.4 mL) SYRINGE SC SCH (09:29)
[2024-08-01] MEDS: Docusate 100 MG CAP PO SCH (19:29)
[2024-08-01] MEDS: Oxazepam 10 MG CAP PO SCH (19:29)
[2024-08-01] MEDS: Ketorolac Tromethamine 30 MG (1 mL) VIAL IVP SCH ×2 (19:30→23:25)
[2024-08-01] MEDS: ALPRAZolam 0.5 MG TAB PO PRN (23:24)
[2024-08-02] MEDS ORDERED: Vancomycin 1 GM VIAL ONE ×2 (07:34→10:26)
[2024-08-02] MEDS ORDERED: Bacitracin Zinc Ointment 30 gm TUBE ONE ×2 (07:34→12:07)
[2024-08-02] MEDS ORDERED: Mineral Oil Sterile 10 ML VIAL ONE (07:35)
[2024-08-02] MEDS ORDERED: Bupivacaine PF 0.5% 30 ML VIAL ONE (07:35)
[2024-08-02] MEDS ORDERED: Morphine 4 MG/ML VIAL ONE (08:07)
[2024-08-02] MEDS ORDERED: Lidocaine 1% PF 5 ML VIAL ONE (09:38)
[2024-08-02] MEDS ORDERED: PROPOFOL 20 ML ONE (09:38)
[2024-08-02] MEDS ORDERED: fentaNYL PF 100 MCG/2 ML SYRINGE ONE (09:38)
[2024-08-02] MEDS ORDERED: Ondansetron PF 4 MG/2 ML Vial ONE (09:38)
[2024-08-02] MEDS ORDERED: Thrombin 5000 UNITS/5 ML VIAL ONE (10:18)
[2024-08-02] MEDS ORDERED: EPINEPHrine 1 MG/ML VIAL ONE (10:25)
[2024-08-02] MEDS ORDERED: PHENYLEPHRINE-NS 100 MCG/ML 10 ML SYRINGE ONE (11:36)
[2024-08-02] MEDS ORDERED: fentaNYL 50 mcg/mL 1 mL Vial ONE ×2 (13:41→14:18)
[2024-08-02] MEDS: Potassium Chloride 20 MEQ TAB PO SCH ×2 (16:24→16:33)
[2024-08-03 10:13] LABS: #Basophils 0.03 10x3/uL (0.0-0.2); %Basophils 0.3 % (0.0-1.0); %Eosinophils 1.1 % (0.0-10.0); %Lymphocytes 12.4 % (21.0-51.0); %Monocytes 9.1 % (0.0-10.0); %Neutrophils 76.2 % (42.0-75.0); Hematocrit 26.3 % (36.0-47.0); Hemoglobin 8.5 g/dL (12.0-16.0); Mean Corpuscular HGB CONC 32.3 g/dL (32.0-36.0); Mean Corpuscular Hemoglobin 31.3 pg (27.0-31.0); Mean Corpuscular Volume 96.7 fL (78.0-98.0); Mean Platelet Volume 9.8 fL (7.4-10.4); Platelet Count 204 10x3/uL (130-400); RBC Distribution Width 12.6 % (11.5-14.5); Red Blood Cell (RBC) Count 2.72 mill/uL (4.20-5.40)
[2024-08-03 10:46] LABS: Anion Gap 13 mmol/L (10-20); BUN (Urea Nitrogen) 9 mg/dL (9.8-20.1); Calc. Creatinine Clearance 93 mL/min (70-130); Calcium 6.9 mg/dL (7.8-10.44); Carbon Dioxide 20 mmol/L (23-31); Chloride 107 mmol/L (98-107); Estimated GFR 103; Glucose 122 mg/dL (80-115); Potassium 3.9 mmol/L (3.5-5.1); Sodium 136 mmol/L (136-145)
[2024-08-03 11:35] LABS: Magnesium 1.3 mg/dL (1.6-2.6); Phosphorus 2.8 mg/dL (2.3-4.7)
[2024-08-03] MEDS: Calcium Chloride 13.6 MEQ in Sodium Chloride 0.9% 100 ML IVPB SCH (12:03)
[2024-08-03] MEDS: Magnesium 2 GM/50 ML(in water) 2 GM in Premix 1 BAG IVPB SCH (16:20)
[2024-08-03] MEDS: Rabies Vaccine Human 2.5 UNITS VIAL IM ONE (21:40)
[2024-08-04 15:26] VITALS: BP 178/84; TEMP 98.1
== END 2024-08-04 18:10 | disposition home or self-care (01) | DRG 465 ==
LOC: ERS 01:59 → SURG B 02:51
PROVIDERS: ADMIT Surgery; ATTEND Surgery
PROC: 0PSH05Z Reposition Right Radius with External Fixation Device, Open Approach (ICD-10-PCS; 2024-07-31)
PROC: 0HRDX74 Replacement of Right Lower Arm Skin with Autologous Tissue Substitute, Partial Thickness, External Approach (ICD-10-PCS; principal; 2024-08-02)
PROC: 0HQQXZZ Repair Finger Nail, External Approach (ICD-10-PCS; 2024-08-02)
PROC: 0JBG0ZZ Excision of Right Lower Arm Subcutaneous Tissue and Fascia, Open Approach (ICD-10-PCS; 2024-08-02)
DX: S52.601B Unspecified fracture of lower end of right ulna, initial encounter for open fracture type I or II (principal); S52.501B Unspecified fracture of the lower end of right radius, initial encounter for open fracture type I or II; S41.151A Open bite of right upper arm, initial encounter; E87.6 Hypokalemia; E83.51 Hypocalcemia; S62.613A Displaced fracture of proximal phalanx of left middle finger, initial encounter for closed fracture; F41.9 Anxiety disorder, unspecified; K21.9 Gastro-esophageal reflux disease without esophagitis; F32.A Depression, unspecified; Z90.710 Acquired absence of both cervix and uterus; Z90.49 Acquired absence of other specified parts of digestive tract; W54.0XXA Bitten by dog, initial encounter; Y93.89 Activity, other specified; Y92.89 Other specified places as the place of occurrence of the external cause; Z79.899 Other long term (current) drug therapy; F17.210 Nicotine dependence, cigarettes, uncomplicated
CPT/HCPCS: 36415; 71045; 80048; 80053; 82310; 83735; 84100; 85025; 85610; 85730; 86850; 86900; 86901; 90675; 93005; 96374; 96375; 96376; 97139; A6258; C1713; J0171; J0665; J1100; J1650; J1885; J2250; J2272; J2405; J2543; J2704; J3010; J3370; J3475; J3480; J7120; Q9967

== ENCOUNTER 2024-10-08 12:51 | Outpatient (CLI) | payer BC | END 2024-10-08 12:52 | disposition home or self-care (01) | LOC: CT 12:51 | PROVIDERS: ATTEND Orthopaedic Surgery Hand Surgery | DX: S52.501C Unspecified fracture of the lower end of right radius, initial encounter for open fracture type IIIA, IIIB, or IIIC (principal); S52.601 Unspecified fracture of lower end of right ulna; Z98.890 Other specified postprocedural states ==